=== PATIENT | male | born 1945 | race Caucasian/White ===

== ENCOUNTER → 2021-08-23 10:30 | Outpatient (CLI) | payer MEDICARE, SELFPAY ==
--- NOTE | ~2021-08-23 | XR_ITS ---
XR lumbar spine min 4V 08/23/2021 11:07 Indication: Low back pain. Procedure: 5 views of the lumbar spine Comparison: No prior studies for comparison. Findings: There is levoscoliosis. There is disc narrowing at all lumbar levels. There is multilevel f acet hypertrophy. No acute fracture or traumatic malalignment. There is no spondylolisthesis. Sacral foramen are symmetric. There are splenic arterial calcifications in the upper abdomen. Visualized bow el gas pattern is nonobstructive. Impression: 1: Severe lumbar spondylosis with levoscoliosis. Reviewed, dictated and finalized at location A. P Impression: 1: Severe lumbar spondylosis with levoscoliosis.
== END ==
PROVIDERS: PCP Family Medicine; Visit Provider Family Medicine
DX: M47.896 Other spondylosis, lumbar region (principal)
CPT/HCPCS: 72110

== ENCOUNTER 2022-02-27 09:40 | Outpatient (CLI) | payer MEDICARE, SELFPAY ==
--- NOTE | ~2022-02-27 | MR_ITS ---
EXAMINATION: MR brain/brain stem wo/w con DATE: 02/27/2022 10:38 INDICATION: Gait disturbance. TECHNIQUE: Magnetic resonance imaging (MRI) of the brain and brainstem was performed without and with 20 mL MultiHance intravenous contrast. COMPARISON: None. FINDINGS: There is no intracranial hemorrhage, acute infarction, or abnormal intracranial mass lesion . There are scattered areas of nonspecific increased T2-weighted signal intensity in the cerebral whi te matter. The ventricles are normal in size. The mastoid air cells are normal. The orbits are normal . There is mild mucosal thickening in the paranasal sinuses. IMPRESSION: 1. Mild nonspecific cerebral white matter disease, which likely represents chronic small vessel ische akshat disease. Reviewed, dictated and finalized at location A. IMPRESSION: 1. 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
== END 2022-02-27 09:41 | disposition home or self-care (01) ==
PROVIDERS: PCP Family Medicine; Visit Provider Family Medicine
DX: R26.9 Unspecified abnormalities of gait and mobility (principal); R90.82 White matter disease, unspecified
CPT/HCPCS: 70553; A9577

== ENCOUNTER 2022-04-20 15:33 | Outpatient (CLI) | payer MEDICARE, SELFPAY ==
--- NOTE | ~2022-04-20 | MR_ITS ---
EXAMINATION: MR lumbar spine wo con DATE: 04/20/2022 16:11 INDICATION: Back pain. TECHNIQUE: Magnetic resonance imaging (MRI) of the lumbar spine was performed without intravenous con trast. Sequences included sagittal T2-weighted FSE, sagittal T2-weighted FS FSE, sagittal T1-weighted FSE, and axial T2-weighted FSE. COMPARISON: Lumbar spine radiographs 08/23/2021 FINDINGS: There is 21 degrees levoscoliosis of lumbar spine. There is 3 mm retrolisthesis of L1 on L2 , L2 on L3, and L3 on L4. Vertebral body heights are normal. There is mildly decreased disc height at L1-L2, severely decreased disc height at L2-L3 and L3-L4, moderately decreased disc height at L4-L5, and severely decreased disc height at L5-S1 with endplate remodeling. The distal spinal cord signal intensity is normal. The conus medullaris is at L1. The following disc levels are specifically discus sed: L1-L2: The disc is bulging. There is mild bilateral facet joint osteoarthritis. There is mild left ne ural foraminal stenosis. There is no central canal stenosis. L2-L3: The disc is bulging and has an annular fissure. There is moderate right and mild left facet daisha int osteoarthritis. There is mild bilateral neural foraminal stenosis. There is mild central canal st enosis. L3-L4: The disc is bulging and has an annular fissure. There is severe right and moderate left facet joint osteoarthritis. There is moderate right and mild left neural foraminal stenosis. There is mild central canal stenosis. L4-L5: The disc is bulging and has an annular fissure. There is severe bilateral facet joint osteoart hritis. There is mild right and moderate left neural foraminal stenosis. There is mild central canal stenosis. L5-S1: The disc is bulging and has an annular fissure. There is moderate right and severe left facet joint osteoarthritis. There is mild bilateral neural foraminal stenosis. There is mild central canal stenosis. IMPRESSION: 1. Severe lumbar spondylosis. 2. Lumbar levoscoliosis. Reviewed, dictated and finalized at location A.
== END 2022-04-20 15:34 | disposition home or self-care (01) ==
PROVIDERS: PCP Family Medicine; Visit Provider Student in an Organized Health Care Education/Training Program
DX: R26.9 Unspecified abnormalities of gait and mobility (principal); M43.06 Spondylolysis, lumbar region; M41.86 Other forms of scoliosis, lumbar region
CPT/HCPCS: 72148

== ENCOUNTER 2022-07-10 08:58 | Outpatient (CLI) | payer MEDICARE, SELFPAY ==
--- NOTE | 2022-07-10 11:00 | NEURO_ITS ---
Impression: Patient with a history of balance issues and unsteadiness with walking. 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 # Clinical correlation recommended. Motor Nerve Conduction Lower Extremities Peroneal Nerve Conduction Velocity (m/sec) Terminal Latency (msec) Response Voltage(mV) Popliteal space-Ankle Ankle Extensor Dig Brevis Popliteal space Ankle Right 40-43 4.2 1-1 1 Left 43-10 4.3 1-1 1 Tibial Nerve Conduction Velocity (m/sec) Terminal Latency (msec) Response Voltage(mV) Popliteal space-Ankle Ankle-Extensor Dig Brevis Popliteal space Ankle Right 42 4.3 2 3 Left 41 4.1 1 3 F-waves Peroneal Nerve (ms) Tibial Nerve (ms) Right 57.4 58.0 Left 58.3 58.0 Sensory Nerve Conduction Lower Extremities Sural Nerve Stimulation Terminal Latency (msec) Ankle Response Voltage (uV) Ankle Response Velocity (m/sec) Right 3.9 8 41 Left 3.5 18 43 Superficial Peroneal Nerve Stimulation Terminal Latency (msec) Ankle Response Voltage (uV) Ankle Response Velocity (m/sec) Right 3.9 17 41 Left 4.2 15 38 Left Right Muscles Examined Fibrillation Fasciculation Scarcity Voltage Duration Left Right Left Right Left Right Left Right Left Right X X Ant Tibialis X X Gastroc Reduced Reduced X X Fibularis Long X X Flex Dig Long Reduced Reduced X X Ext Dig Brev Abd Hallucis Quadriceps Paraspinals MTDD
== END 2022-07-10 08:59 | disposition home or self-care (01) ==
PROVIDERS: PCP Family Medicine; Visit Provider Student in an Organized Health Care Education/Training Program
DX: R26.9 Unspecified abnormalities of gait and mobility (principal); G62.9 Polyneuropathy, unspecified
CPT/HCPCS: 95886; 95910

== ENCOUNTER 2025-05-12 22:26 | Emergency (ER) | payer MEDICARE, SELFPAY ==
--- OUTSIDE RECORDS SUMMARY | 2021-11-27 10:09 | XMS_ITS | Continuity of Care Document ---
Author Organization [facility] Address [address] [place] [address] [address] [place] [address] Phone Care Team Providers Care Financial Controller Name Role Phone Darek PT, MYAT, Cory Unavailable Unavailable Procedures Procedure Date Progress Note Therapeutic Activities Neuromuscular Re-Ed Therapeutic Activities Neuromuscular Re-Ed Therapeutic Activities Neuromuscular Re-Ed Therapeutic Activities Neuromuscular Re-Ed Therapeutic Activities Therapeutic Activities Neuromuscular Re-Ed Therapeutic Activities Neuromuscular Re-Ed PT Evaluation High Complexity Therapeutic Activities Neuromuscular Re-Ed Therapeutic Activities Therapeutic Exercise Therapeutic Activities Therapeutic Exercise Therapeutic Activities Therapeutic Exercise Therapeutic Activities Therapeutic Exercise Therapeutic Activities Therapeutic Exercise Therapeutic Activities Neuromuscular Re-Ed Therapeutic Activities Neuromuscular Re-Ed Progress Note Therapeutic Activities Therapeutic Exercise Progress Note Therapeutic Activities Neuromuscular Re-Ed Therapeutic Exercise Therapeutic Activities Neuromuscular Re-Ed Progress Note Therapeutic Activities Neuromuscular Re-Ed Therapeutic Exercise Therapeutic Activities Therapeutic Exercise Therapeutic Activities Neuromuscular Re-Ed Therapeutic Exercise Therapeutic Activities Neuromuscular Re-Ed Progress Note Therapeutic Activities Neuromuscular Re-Ed Therapeutic Activities Neuromuscular Re-Ed Therapeutic Exercise Therapeutic Activities Neuromuscular Re-Ed Therapeutic Exercise Therapeutic Activities Neuromuscular Re-Ed Therapeutic Exercise Therapeutic Activities Neuromuscular Re-Ed Manual Therapy Therapeutic Activities Therapeutic Exercise Manual Therapy Therapeutic Activities Therapeutic Exercise Manual Therapy Therapeutic Activities Therapeutic Exercise Manual Therapy PT Evaluation Moderate Complexity Therapeutic Exercise Manual Therapy Therapeutic Exercise Therapeutic Activities Therapeutic Exercise Therapeutic Activities Therapeutic Exercise Therapeutic Activities Neuromuscular Re-Ed Progress Note Therapeutic Exercise Therapeutic Activities Neuromuscular Re-Ed Therapeutic Activities Neuromuscular Re-Ed Therapeutic Activities Neuromuscular Re-Ed Therapeutic Exercise Therapeutic Activities Neuromuscular Re-Ed Therapeutic Activities Neuromuscular Re-Ed Therapeutic Exercise Therapeutic Activities Neuromuscular Re-Ed Therapeutic Exercise Therapeutic Activities PT Evaluation Moderate Complexity Therapeutic Exercise Therapeutic Activities Advance Directives Directive Yes / No Effective Date File Name No Information Encounters Encounter Description Practice Location Reason(s) For Visit Diagnoses Date Provider Providers Copied on Encounter [facility] [address] [address], [place], [place], [id number], tel:[phone] [place] No Information Sergio-0 6-202 2 Klahn Cory. . [facility] [address], [id number], tel:[phone] [place] No Information Sep-1 5- 2 Klahn Cory. . Referring Provider: [address], [place], [address]. tel:[phone] [place] [address] [address] [address], [place], [place], [id number], tel:[phone] [place] No Information 2 Klahn Cory. . Referring Provider: [address], [place], [address]. tel:[phone] [place] [address], [id number], [place] tel:[phone] [place] No Information Sep-0 6 2 Klahn Cory. . Referring Provider: [address], [place], [address]. tel:[phone] [place] [address], [id number], [place] tel:[phone] [place] No Information Aug-3 0-202 2 Klahn Cory. . Referring Provider: [address], [place], [address]. tel:[phone] [place] [address] [address] [facility], [place], [place], [id number], [place] tel:[phone] [place] No Information Mar-2 8-202 2 Juliannen Cory. . Referring Provider: [address], [place], [address]. tel:[phone] [place], [place] [id number] [address], [place], [place], [address], [place] tel:[phone] [place] No Information Mar-2 3-202 2 Klahn Cory. . Referring Provider: [address], [place], [address]. tel:[phone] [place], [place] [id number] [address], [place], [place], [address], [place] tel:[phone] [place] No Information Mar-2 1-202 2 [place] Eladio. . Referring Provider: [address], [place], [address]. tel:[phone] [place] [id number] [address], [place], [place], [address], [place] tel:[phone] [place] No Information Mar-1 6-202 2 Juliannen Cory. . Referring Provider: [address], [place], [address]. tel:[phone] [place], [place] [id number] [address], [place], [place], [address], [place] tel:[phone] [place] No Information Mar-2 7-202 0 Makler Luke. . [facility], [place], [place], [address], [place] tel:[phone] [place] No Information Mar-2 0-202 0 Makler Luke. . [facility], [place], [place], [address], [place] tel:[phone] [place] No Information Mar-1 1-202 0 Makler Luke. . [facility], [place], [place], [address], [place] tel:[phone] [place] No Information Mar-0 6-202 0 Makler Luke. . [facility], [place], [place], [address], [place] tel:[phone] [place] No Information - 0 Makler Luke. . [facility], [place], [place], [address], [place] tel:[phone] [place] No Information 0 Makler Luke. . [facility], [place], [place], [address], [place] tel:[phone] [place] No Information 0 Makler Luke. . [facility], [place], [place], [address], [place] tel:[phone] [place] No Information 0 Makler Luke. . [facility], [place], [place], [address], [place] tel:[phone] [place] No Information 0 Makler Luke. . [facility], [place], [place], [address], [place] tel:[phone] [place] No Information - 0 Makler Luke. . [facility], [place], [place], [address], [place] tel:[phone] [place] No Information 0- 0 Makler Luke. . [facility], [place], [place], [address], [place] tel:[phone] [place] No Information - 0 Makler Luke. . [facility], [place], [address], [place] tel:[phone] [place] No Information 2- 0 Makler Luke. . [facility], [place], [place], [address], [place] tel:[phone] [place] No Information 0-201 9 Makler Luke. . [facility], [place], [place], [address], [place] tel:[phone] [place] No Information Dec-2 6-201 9 Makler Luke. . [facility], [place], [address], [place] tel:[phone] [place] No Information Dec-2 4-201 9 Makler Luke. . [facility], [place], [place], [address], [place] tel:[phone] [place] No Information Dec-2 0-201 9 Makler Luke. . [facility], [place], [place], [address], [place] tel:[phone] [place] No Information Dec-1 6-201 9 Makler Luke. . [facility], [place], [place], [address], [place] tel:[phone] [place] No Information Dec-1 3-201 9 Makler Luke. . [facility], [place], [place], [address], [place] tel:[phone] [place] No Information Dec-0 4-201 9 Makler Luke. . [facility], [place], [address], [place] tel:[phone] [place] No Information Dec-0 2-201 9 Makler Luke. . [facility], [place], [place], [address], [place] tel:[phone] [place] No Information Nov-2 2-201 9 Makler Luke. . [facility], [place], [place], [address], [place] tel:[phone] [place] No Information Nov-1 8-201 9 Makler Luke. . [facility], [place], [place], [address], [place] tel:[phone] [place] No Information 9 Makler Luke. . [facility], [place], [place], [address], [place] tel:[phone] [place] No Information 9 Makler Luke. . [facility], [place], [place], [address], [place] tel:[phone] [place] No Information 9 Makler Luke. . [facility], [place], [address], [place] tel:[phone] [place] No Information 9 Makler Luke. . [facility], [place], [place], [address], [place] tel:[phone] [place] No Information 9 Makler Luke. . [facility], [place], [place], [address], [place] tel:[phone] [place] No Information 9 Makler Luke. . [facility], [place], [place], [address], [place] tel:[phone] [place] No Information 9 Makler Luke. . [facility], [place], [address], [place] tel:[phone] [place] No Information 9 Makler Luke. . [facility], [place], [address], [place] tel:[phone] [place] No Information 9 Makler Luke. . [facility], [place], [place], [address], [place] tel:[phone] [place] No Information 9 Makler Luke. . [facility] [place], [place], [place], [address], [place] tel:[phone] [place] No Information Teddy Bueno. . Family History Family Member Type Diagnosis Age At Onset No Information Payers Payer name Insurance type Covered libertarian ID Authoriza tiscot(s) Medicare [place] MB [id number] [facility] Medicare Supplement [id number] Social History Type Description Quantity Date Captured Comments Sex Male Smoking Status No Information Chief Complaint And Reason For Visit No Information Reason For Referral Reason For Referral No Information History Of Present Illness Encounter Date Complaint History Of Prese nt Illness No Information Functional Status Date Functional Assessmen t No Information Instructions Date Instruction Additional Infor zaid Giving encouragement to exercise Related to Overweight Giving encouragement to exercise Related to Overweight Assessments Type Assessment Date No Information Patient Care Teams Name Effective Dates (start - stop) Status Members No Information
--- OUTSIDE RECORDS SUMMARY | 2021-11-27 10:09 | XMS_ITS | Continuity of Care Document ---
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 . [facility] [address], [id number], tel:[phone] [place] No Information Sep-1 5- 2 Klahn Cory. . Referring Provider: [address], [place], [address]. tel:[phone] [place] [address] [address] [address], [place], [place], [address], tel:[phone] [place] No Information 2 Klahn Cory. . Referring Provider: [address], [place], [address]. tel:[phone] [place] [address], [id number], [place] tel:[phone] [place] No Information Sep-0 6 2 Klahn Cory. . Referring Provider: [address], [place], [address]. tel:[phone] [place] [address], [id number], [place] tel:[phone] [place] No Information Aug-3 0-202 2 Klahn Cory. . Referring Provider: [address], [place], [address]. tel:[phone] [place] [address] [address] [facility], [place], [place], [address], [place] tel:[phone] [place] No Information Mar-2 8-202 2 Juliannen Cory. . Referring Provider: [address], [place], [address]. tel:[phone] [place], [place] [id number] [address], [place], [place], [address], [place] tel:[phone] [place] No Information Mar-2 3-202 2 Klahn Cory. . Referring Provider: [address], [place], [address]. tel:[phone] [place], [place] [id number] [address], [place], [place], [address], [place] tel:[phone] [place] No Information Mar-2 1-202 2 [place] Eladio. . Referring Provider: [address], [place], [address]. tel:[phone] [place], [place] [id number] [address], [place], [place], [address], [place] tel:[phone] [place] No Information Mar-1 6-202 2 Juliannen Cory. . Referring Provider: [address], [place], [address]. tel:[phone] [place], [place] [id number] [address], [place], [place], [address], [place] tel:[phone] [place] No Information Mar-2 7-202 0 Makler Luke. . [facility], [place], [place], [address], [place] tel:[phone] [place] No Information Mar-2 0-202 0 Makler Luke. . [facility], [place], [place], [address], [place] tel:[phone] [place] No Information Mar-1 1-202 0 Makler Luke. . [facility], [place], [place], [address], [place] tel:[phone] [place] No Information Mar-0 6-202 0 Makler Luke. . [facility], [place], [place], [address], [place] tel:[phone] [place] No Information - 0 Makler Luke. . [facility], [place], [place], [address], [place] tel:[phone] [place] No Information 0 Makler Luke. . [facility], [place], [place], [address], [place] tel:[phone] [place] No Information 0 Makler Luke. . [facility], [place], [place], [address], [place] tel:[phone] [place] No Information 0 Makler Luke. . [facility], [place], [place], [address], [place] tel:[phone] [place] No Information 0 Makler Luke. . [facility], [place], [place], [address], [place] tel:[phone] [place] No Information - 0 Makler Luke. . [facility], [place], [place], [address], [place] tel:[phone] [place] No Information 0- 0 Makler Luke. . [facility], [place], [place], [address], [place] tel:[phone] [place] No Information - 0 Makler Luke. . [facility], [place], [place], [address], [place] tel:[phone] [place] No Information 2- 0 Makler Luke. . [facility], [place], [place], [address], [place] tel:[phone] [place] No Information 0-201 9 Makler Luke. . [facility], [place], [place], [address], [place] tel:[phone] [place] No Information Dec-2 6-201 9 Makler Luke. . [facility], [place], [place], [address], [place] tel:[phone] [place] No Information Dec-2 4-201 9 Makler Luke. . [facility], [place], [place], [address], [place] tel:[phone] [place] No Information Dec-2 0-201 9 Makler Luke. . [facility], [place], [place], [address], [place] tel:[phone] [place] No Information Dec-1 6-201 9 Makler Luke. . [facility], [place], [place], [address], [place] tel:[phone] [place] No Information Dec-1 3-201 9 Makler Luke. . [facility], [place], [place], [address], [place] tel:[phone] [place] No Information Dec-0 4-201 9 Makler Luke. . [facility], [place], [place], [address], [place] tel:[phone] [place] No Information Dec-0 2-201 9 Makler Luke. . [facility], [place], [place], [address], [place] tel:[phone] [place] No Information Nov-2 2-201 9 Makler Luke. . [facility], [place], [place], [address], [place] tel:[phone] [place] No Information Nov-1 8-201 9 Makler Luke. . [facility], [place], [place], [address], [place] tel:[phone] [place] No Information 9 Makler Luke. . [facility], [place], [place], [address], [place] tel:[phone] [place] No Information 9 Makler Luke. . [facility], [place], [place], [address], [place] tel:[phone] [place] No Information 9 Makler Luke. . [facility], [place], [place], [address], [place] tel:[phone] [place] No Information 9 Makler Luke. . [facility], [place], [place], [address], [place] tel:[phone] [place] No Information 9 Makler Luke. . [facility], [place], [place], [address], [place] tel:[phone] [place] No Information 9 Makler Luke. . [facility], [place], [place], [address], [place] tel:[phone] [place] No Information 9 Makler Luke. . [facility], [place], [place], [address], [place] tel:[phone] [place] No Information 9 Makler Luke. . [facility], [place], [place], [address], [place] tel:[phone] [place] No Information 9 Makler Luke. . [facility], [place], [place], [address], [place] tel:[phone] [place] No Information 9 Makler Luke. . [facility] [place], [place], [place], [address], [place] tel:[phone] [place] No Information Teddy Bueno. . Family History Family Member Type Diagnosis Age At Onset No Information Payers Payer name Insurance type Covered constitution party ID Authoriza tiscot(s) Medicare [place] MB [id number] [facility] Medicare Supplement [id number] Social History Type Description Quantity Date Captured [...]
--- OUTSIDE RECORDS SUMMARY | 2021-11-27 10:09 | XMS_ITS | Continuity of Care Document ---
Author Organization [employer] [place] Address [address] [place] [address] [address] [place] [address] Phone Care Team Providers Care Programmer Name Role Phone Darek PT, MYAT, Cory [...] Diagnoses Date Provider Providers Copied on Encounter [facility] [address] [address], [place], [place], [id number], tel:[phone] [place] No Information Sergio-0 6-202 2 Klahn Cory. . [facility] [address], [id number], tel:[phone] [place] No Information Sep-1 5- 2 Klahn Cory. . Referring Provider: [address], [place], [address]. tel:[phone] [place] [address] [address] [address], [place], [place], [address], tel:[phone] [place] No Information 2 Klahn Cory. . Referring Provider: [address], [place], [address]. tel:[phone] [place] [address], [id number], [place] tel:[phone] [place] No Information Sep-0 6 2 Klahn Cory. . Referring Provider: [address], [place], [address]. tel:[phone] [place] [address], [id number], [place] tel:[phone] [place] No Information Aug-3 0-202 2 Klahn Cory. . Referring Provider: [address], [place], [address]. tel:[phone] [place] [address] 2121 [facility], [place], [place], [address], [place] tel:[phone] [place] No Information Mar-2 8-202 2 Juliannen Cory. . Referring Provider: [address], [place], [address]. tel:[phone] [place], [place] [address] [address], [place], [place], [address], [place] tel:[phone] [place] No Information Mar-2 3-202 2 Klahn Cory. . Referring Provider: [address], [place], [address]. tel:[phone] [place], [place] [address] [address], [place], [place], [address], [place] tel:[phone] [place] No Information Mar-2 1-202 2 Modglin Eladio. . Referring Provider: [address], [place], [address]. tel:[phone] [place], [place] [address] [address], [place], [place], [address], [place] tel:[phone] [place] No Information Mar-1 6-202 2 Juliannen Cory. . Referring Provider: [address], [place], [address]. tel:[phone] [place], [place] [address] [address], [place], [place], [address], [place] tel:[phone] [place] No Information Mar-2 7-202 0 Makler Luke. . [facility], [place], [address], [place] tel:[phone] [place] No Information Mar-2 0-202 0 Makler Luke. . [facility], [place], [place], [address], [place] tel:[phone] [place] No Information Mar-1 1-202 0 Makler Luke. . [facility], [place], [address], [place] tel:[phone] [place] No Information Mar-0 6-202 0 Makler Luke. . [facility], [place], [address], [place] tel:[phone] [place] No Information - 0 Makler Luke. . [facility], [place], [address], [place] tel:[phone] [place] No Information 0 Makler Luke. . [facility], [place], [address], [place] tel:[phone] [place] No Information 0 Makler Luke. . [facility], [place], [address], [place] tel:[phone] [place] No Information 0 Makler Luke. . [facility], [place], [address], [place] tel:[phone] [place] No Information 0 Makler Luke. . [facility], [place], [address], [place] tel:[phone] [place] No Information - 0 Makler Luke. . [facility], [place], [address], [place] tel:[phone] [place] No Information 0- 0 Makler Luke. . [facility], [place], [address], [place] tel:[phone] [place] No Information - 0 Makler Luke. . [facility], [place], [address], [place] tel:[phone] [place] No Information 2- 0 Makler Luke. . [facility], [place], [place], [address], [place] tel:[phone] [place] No Information 0-201 9 Makler Luke. . [facility], [place], [address], [place] tel:[phone] [place] No Information Dec-2 6-201 9 Makler Luke. . [facility], [place], [address], [place] tel:[phone] [place] No Information Dec-2 4-201 9 Makler Luke. . [facility], [place], [address], [place] tel:[phone] [place] No Information Dec-2 0-201 9 Makler Luke. . [facility], [place], [address], [place] tel:[phone] [place] No Information Dec-1 6-201 9 Makler Luke. . [facility], [place], [address], [place] tel:[phone] [place] No Information Dec-1 3-201 9 Makler Luke. . [facility], [place], [address], [place] tel:[phone] [place] No Information Dec-0 4-201 9 Makler Luke. . [facility], [place], [address], [place] tel:[phone] [place] No Information Dec-0 2-201 9 Makler Luke. . [facility], [place], [address], [place] tel:[phone] [place] No Information Nov-2 2-201 9 Makler Luke. . [facility], [place], [address], [place] tel:[phone] [place] No Information Nov-1 8-201 9 Makler Luke. . [facility], [place], [address], [place] tel:[phone] [place] No Information 9 Makler Luke. . [facility], [place], [address], [place] tel:[phone] [place] No Information 9 Makler Luke. . [facility], [place], [address], [place] tel:[phone] [place] No Information 9 Makler Luke. . [facility], [place], [place], [address], [place] tel:[phone] [place] No Information 9 Makler Luke. . [facility], [place], [address], [place] tel:[phone] [place] No Information 9 Makler Luke. . [facility], [place], [address], [place] tel:[phone] [place] No Information 9 Makler Luke. . [facility], [place], [address], [place] tel:[phone] [place] No Information 9 Makler Luke. . [facility], [place], [address], [place] tel:[phone] [place] No Information 9 Makler Luke. . [facility], [place], [address], [place] tel:[phone] [place] No Information 9 Makler Luke. . [facility], [place], [place], [address], [place] tel:[phone] [place] No Information [address] . [facility] [place], [place], [place], [address], [place] tel:[phone] [place] No Information Teddy Bueno. . Family History Family Member Type Diagnosis Age At Onset No Information Payers Payer name Insurance type Covered democrat ID Authoriza tiscot(s) Medicare [place] MB [id number] [facility] Medicare Supplement [id number] Social History Type Description Quantity Date Captured [...]
--- OUTSIDE RECORDS SUMMARY | 2021-11-27 10:09 | XMS_ITS | Continuity of Care Document ---
Author Organization [employer] [place] Address [address] [place] [address] [address] [place] [address] Phone Care Team Providers Care Utility Operator Name Role Phone Darek PT, MYAT, Coyr Unavailable Unavailable Procedures Procedure Date Progress Note [...] Diagnoses Date Provider Providers Copied on Encounter [facility] [address] [address], [place], [place], [address], tel:[phone] [place] No Information Sergio-0 6-202 2 Klahn Cory. . [facility] [address], [id number], tel:[phone] [place] No Information Sep-1 5- 2 Klahn Cory. . Referring Provider: [address], [place], [address]. tel:[phone] [place] [address] [address] [address], [place], [place], [address], tel:[phone] [place] No Information 2 Klahn Cory. . Referring Provider: [address], [place], [address]. tel:[phone] [place] [address], [id number], [place] tel:[phone] [place] No Information Sep-0 6 2 Klahn Cory. . Referring Provider: [address], [place], [address]. tel:[phone] [place] [address], [address], [place] tel:[phone] [place] No Information Aug-3 0-202 2 Klahn oCry. . Referring Provider: [address], [place], [address]. tel:[phone] [place] [address] 2121 [facility], [place], [address], [place] tel:[phone] [place] No Information Mar-2 8-202 2 Juliannen Cory. . Referring Provider: [address], [place], [address]. tel:[phone] [place], [place] [address] [address], [place], [address], [place] tel:[phone] [place] No Information Mar-2 3-202 2 Klahn Cory. . Referring Provider: [address], [place], [address]. tel:[phone] [place], [place] [address] [address], [place], [address], [place] tel:[phone] [place] No Information Mar-2 1-202 2 Modglin Eladio. . Referring Provider: [address], [place], [address]. tel:[phone] [place], [place] [address] [address], [place], [address], [place] tel:[phone] [place] No Information Mar-1 6-202 2 Juliannen Cory. . Referring Provider: [address], [place], [address]. tel:[phone] [place] [address] [address], [place], [address], [place] tel:[phone] [place] No Information Mar-2 7-202 0 Makler Luke. . [facility], [place], [place], [address], [place] tel:[phone] [place] No Information Mar-2 0-202 0 Makler Luke. . [facility], [place], [place], [address], [place] tel:[phone] [place] No Information Mar-1 1-202 0 Makler Luke. . [facility], [place], [place], [address], [place] tel:[phone] [place] No Information Mar-0 6-202 0 Makler Luke. . [facility], [place], [address], [place] tel:[phone] [place] No Information - 0 Makler Luke. . [facility], [place], [address], [place] tel:[phone] [place] No Information 0 Makler Luke. . [facility], [place], [address], [place] tel:[phone] [place] No Information 0 Makler Luke. . [facility], [place], [address], [place] tel:[phone] [place] No Information 0 Makler Luke. . [facility], [place], [place], [address], [place] tel:[phone] [place] No Information 0 Makler Luke. . [facility], [place], [place], [address], [place] tel:[phone] [place] No Information - 0 Makler Luke. . [facility], [place], [place], [address], [place] tel:[phone] [place] No Information 0- 0 Makler Luke. . [facility], [place], [address], [place] tel:[phone] [place] No Information - 0 Makler Luke. . [facility], [place], [address], [place] tel:[phone] [place] No Information 2- 0 Makler Luke. . [facility], [place], [address], [place] tel:[phone] [place] No Information 0-201 9 Makler Luke. . [facility], [place], [place], [address], [place] tel:[phone] [place] No Information Dec-2 6-201 9 Makler Luke. . [facility], [place], [address], [place] tel:[phone] [place] No Information Dec-2 4-201 9 Makler Luke. . [facility], [place], [address], [place] tel:[phone] [place] No Information Dec-2 0-201 9 Makler Luke. . [facility], [place], [address], [place] tel:[phone] [place] No Information Dec-1 6-201 9 Makler Luke. . [facility], [place], [place], [address], [place] tel:[phone] [place] No Information Dec-1 3-201 9 Makler Luke. . [facility], [place], [address], [place] tel:[phone] [place] No Information Dec-0 4-201 9 Makler Luke. . [facility], [place], [place], [address], [place] tel:[phone] [place] No Information Dec-0 2-201 9 Makler Luke. . [facility], [place], [place], [address], [place] tel:[phone] [place] No Information Nov-2 2-201 9 Makler Luke. . [facility], [place], [address], [place] tel:[phone] [place] No Information Nov-1 8-201 9 Makler Luke. . [facility], [place], [place], [address], [place] tel:[phone] [place] No Information 9 Makler Luke. . [facility], [place], [place], [address], [place] tel:[phone] [place] No Information 9 Makler Luke. . [facility], [place], [address], [place] tel:[phone] [place] No Information 9 Makler Luke. . [facility], [place], [address], [place] tel:[phone] [place] No Information 9 Makler Luke. . [facility], [place], [place], [address], [place] tel:[phone] [place] No Information 9 Makler Luke. . [facility], [place], [address], [place] tel:[phone] [place] No Information 9 Makler Luke. . [facility], [place], [address], [place] tel:[phone] [place] No Information 9 Makler Luke. . [facility], [place], [place], [address], [place] tel:[phone] [place] No Information 9 Makler Luke. . [facility], [place], [address], [place] tel:[phone] [place] No Information 9 Makler Luke. . [facility], [place], [address], [place] tel:[phone] [place] No Information 9 Makler Luke. . [facility] [place], [place], [address], [place] tel:[phone] [place] No Information Teddy Bueno. . Family History Family Member Type Diagnosis Age At Onset No Information Payers Payer name Insurance type Covered constitution party ID Authoriza tiscot(s) Medicare [place] MB [id number] [facility] Medicare Supplement [id number] Social History Type Description Quantity Date Captured [...]
--- OUTSIDE RECORDS SUMMARY | 2021-11-27 10:09 | XMS_ITS | Continuity of Care Document ---
Author Organization [employer] [place] Address [address] [place] [address] [address] [place] [address] Phone Care Team Providers Care Academic Department Chair Name Role Phone Darek PT, MYAT, Cory [...] Diagnoses Date Provider Providers Copied on Encounter [facility] [address] [address], [place], [place], [address], tel:[phone] [place] No Information Sergio-0 6-202 2 Klahn Cory. . [facility] [address], [address], tel:[phone] [place] No Information Sep-1 5- 2 Klahn Cory. . Referring Provider: [address], [place], [address]. tel:[phone] [place] [address] [address] [address], [place], [place], [address], tel:[phone] [place] No Information 2 Klahn Cory. . Referring Provider: [address], [place], [address]. tel:[phone] [place] [address], [address], [place] tel:[phone] [place] No Information Sep-0 6 2 Klahn Cory. . Referring Provider: [address], [place], [address]. tel:[phone] [place] [address], [address], [place] tel:[phone] [place] No Information Aug-3 0-202 2 Klahn Cory. . Referring Provider: [address], [place], [address]. tel:[phone] [place] [address] 2121 [facility], [place], [place], [address], [place] tel:[phone] [place] No Information Mar-2 8-202 2 Juliannen Cory. . Referring Provider: [address], [place], [address]. tel:[phone] [place], [place] [address], [place], [place], [address], [place] tel:[phone] [place] No Information Mar-2 3-202 2 Klahn Cory. . Referring Provider: [address], [place], [address]. tel:[phone] [place], [place] [address] [address], [place], [place], [address], [place] tel:[phone] [place] No Information Mar-2 1-202 2 Modgl[place] Eladio. . Referring Provider: [address], [place], [address]. tel:[phone] [place], [place] [address] [address], [place], [place], [address], [place] tel:[phone] [place] No Information Mar-1 6-202 2 Juliannen Cory. . Referring Provider: [address], [place], [address]. tel:[phone] [place], [place] [address] [address], [place], [place], [address], [place] tel:[phone] [place] No Information Mar-2 7-202 0 Makler Luke. . [facility], [place], [place], [address], [place] tel:[phone] [place] No Information Mar-2 0-202 0 Makler Luke. . [facility], [place], [place], [address], [place] tel:[phone] [place] No Information Mar-1 1-202 0 Makler Luke. . [facility], [place], [place], [address], [place] tel:[phone] [place] No Information Mar-0 6-202 0 Makler Luke. . [facility], [place], [place], [address], [place] tel:[phone] [place] No Information - 0 Makler Luke. . [facility], [place], [address], [place] tel:[phone] [place] No Information 0 Makler Luke. . [facility], [place], [place], [address], [place] tel:[phone] [place] No Information 0 Makler Luke. . [facility], [place], [place], [address], [place] tel:[phone] [place] No Information 0 Makler Luke. . [facility], [place], [place], [address], [place] tel:[phone] [place] No Information 0 Makler Luke. . [facility], [place], [place], [address], [place] tel:[phone] [place] No Information - 0 Makler Luke. . [facility], [place], [place], [address], [place] tel:[phone] [place] No Information 0- 0 Makler Luke. . [facility], [place], [place], [address], [place] tel:[phone] [place] No Information - 0 Makler Luke. . [facility], [place], [place], [address], [place] tel:[phone] [place] No Information 2- 0 Makler Luke. . [facility], [place], [place], [address], [place] tel:[phone] [place] No Information 0-201 9 Makler Luke. . [facility], [place], [place], [address], [place] tel:[phone] [place] No Information Dec-2 6-201 9 Makler Luke. . [facility], [place], [place], [address], [place] tel:[phone] [place] No Information Dec-2 4-201 9 Makler Luke. . [facility], [place], [place], [address], [place] tel:[phone] [place] No Information Dec-2 0-201 9 Makler Luke. . [facility], [place], [place], [address], [place] tel:[phone] [place] No Information Dec-1 6-201 9 Makler Luke. . [facility], [place], [place], [address], [place] tel:[phone] [place] No Information Dec-1 3-201 9 Makler Luke. . [facility], [place], [place], [address], [place] tel:[phone] [place] No Information Dec-0 4-201 9 Makler Luke. . [facility], [place], [place], [address], [place] tel:[phone] [place] No Information Dec-0 2-201 9 Makler Luke. . [facility], [place], [place], [address], [place] tel:[phone] [place] No Information Nov-2 2-201 9 Makler Luke. . [facility], [place], [place], [address], [place] tel:[phone] [place] No Information Nov-1 8-201 9 Makler Luke. . [facility], [place], [place], [address], [place] tel:[phone] [place] No Information 9 Makler Luke. . [facility], [place], [place], [address], [place] tel:[phone] [place] No Information 9 Makler Luke. . [facility], [place], [place], [address], [place] tel:[phone] [place] No Information 9 Makler Luke. . [facility], [place], [place], [address], [place] tel:[phone] [place] No Information 9 Makler Luke. . [facility], [place], [place], [address], [place] tel:[phone] [place] No Information 9 Makler Luke. . [facility], [place], [place], [address], [place] tel:[phone] [place] No Information 9 Makler Luke. . [facility], [place], [place], [address], [place] tel:[phone] [place] No Information 9 Makler Luke. . [facility], [place], [place], [address], [place] tel:[phone] [place] No Information 9 Makler Luke. . [facility], [place], [place], [address], [place] tel:[phone] [place] No Information 9 Makler Luke. . [facility], [place], [place], [address], [place] tel:[phone] [place] No Information 9 Makler Luke. . [facility] [place], [place], [place], [address], [place] tel:[phone] [place] No Information Teddy Bueno. . Family History Family Member Type Diagnosis Age At Onset No Information Payers Payer name Insurance type Covered libertarian ID Authoriza tiscot(s) Medicare [place] MB [id number] [facility] Medicare Supplement [id number] Social History Type Description Quantity Date Captured [...]
--- OUTSIDE RECORDS SUMMARY | 2021-11-27 10:09 | XMS_ITS | Continuity of Care Document ---
Author Organization [facility] [place] Address [address] [place] [address] [address] [place] [address] Phone Care Team Providers Care Mottler Machine Feeder Name Role Phone Darek PT, MYAT, Cory [...] Diagnoses Date Provider Providers Copied on Encounter [facility] [address] [address], [place], [place], [address], tel:[phone] [place] No Information Sergio-0 6-202 2 Klahn Cory. . [facility] [address], [id number], tel:[phone] [place] No Information Sep-1 5- 2 Klahn Cory. . Referring Provider: [address], [place], [address]. tel:[phone] [place] [address] [address] [address], [place], [place], [address], tel:[phone] [place] No Information 2 Klahn Cory. . Referring Provider: [address], [place], [address]. tel:[phone] [place] [address], [id number], [place] tel:[phone] [place] No Information Sep-0 6 2 Klahn Cory. . Referring Provider: [address], [place], [address]. tel:[phone] [place] [address], [id number], [place] tel:[phone] [place] No Information Aug-3 0-202 2 Klahn Cory. . Referring Provider: [address], [place], [address]. tel:[phone] [place] [address] 2121 [facility], [place], [place], [address], [place] tel:[phone] [place] No Information Mar-2 8-202 2 Juliannen Cory. . Referring Provider: [address], [place], [address]. tel:[phone] [place], [place] [address] [address], [place], [place], [address], [place] tel:[phone] [place] No Information Mar-2 3-202 2 Klahn Cory. . Referring Provider: [address], [place], [address]. tel:[phone] [place], [place] [address] [address], [place], [place], [address], [place] tel:[phone] [place] No Information Mar-2 1-202 2 [place] Eladio. . Referring Provider: [address], [place], [address]. tel:[phone] [place], [place] [address] [address], [place], [place], [address], [place] tel:[phone] [place] No Information Mar-1 6-202 2 Juliannen Cory. . Referring Provider: [address], [place], [address]. tel:[phone] [place], [place] [address] [address], [place], [place], [address], [place] tel:[phone] [place] No Information Mar-2 7-202 0 Makler Luke. . [facility], [place], [place], [address], [place] tel:[phone] [place] No Information Mar-2 0-202 0 Makler Luke. . [facility], [place], [place], [address], [place] tel:[phone] [place] No Information Mar-1 1-202 0 Makler Luke. . [facility], [place], [place], [address], [place] tel:[phone] [place] No Information Mar-0 6-202 0 Makler Luke. . [facility], [place], [place], [address], [place] tel:[phone] [place] No Information - 0 Makler Luke. . [facility], [place], [place], [address], [place] tel:[phone] [place] No Information 0 Makler Luke. . [facility], [place], [place], [address], [place] tel:[phone] [place] No Information 0 Makler Luke. . [facility], [place], [place], [address], [place] tel:[phone] [place] No Information 0 Makler Luke. . [facility], [place], [place], [address], [place] tel:[phone] [place] No Information 0 Makler Luke. . [facility], [place], [place], [address], [place] tel:[phone] [place] No Information - 0 Makler Luke. . [facility], [place], [place], [address], [place] tel:[phone] [place] No Information 0- 0 Makler Luke. . [facility], [place], [place], [address], [place] tel:[phone] [place] No Information - 0 Makler Luke. . [facility], [place], [place], [address], [place] tel:[phone] [place] No Information 2- 0 Makler Luke. . [facility], [place], [place], [address], [place] tel:[phone] [place] No Information 0-201 9 Makler Luke. . [facility], [place], [place], [address], [place] tel:[phone] [place] No Information Dec-2 6-201 9 Makler Luke. . [facility], [place], [place], [address], [place] tel:[phone] [place] No Information Dec-2 4-201 9 Makler Luke. . [facility], [place], [place], [address], [place] tel:[phone] [place] No Information Dec-2 0-201 9 Makler Luke. . [facility], [place], [place], [address], [place] tel:[phone] [place] No Information Dec-1 6-201 9 Makler Luke. . [facility], [place], [place], [address], [place] tel:[phone] [place] No Information Dec-1 3-201 9 Makler Luke. . [facility], [place], [place], [address], [place] tel:[phone] [place] No Information Dec-0 4-201 9 Makler Luke. . [facility], [place], [place], [address], [place] tel:[phone] [place] No Information Dec-0 2-201 9 Makler Luke. . [facility], [place], [place], [address], [place] tel:[phone] [place] No Information Nov-2 2-201 9 Makler Luke. . [facility], [place], [place], [address], [place] tel:[phone] [place] No Information Nov-1 8-201 9 Makler Luke. . [facility], [place], [place], [address], [place] tel:[phone] [place] No Information 9 Makler Luke. . [facility], [place], [place], [address], [place] tel:[phone] [place] No Information 9 Makler Luke. . [facility], [place], [place], [address], [place] tel:[phone] [place] No Information 9 Makler Luke. . [facility], [place], [place], [address], [place] tel:[phone] [place] No Information 9 Makler Luke. . [facility], [place], [place], [address], [place] tel:[phone] [place] No Information 9 Makler Luke. . [facility], [place], [place], [address], [place] tel:[phone] [place] No Information 9 Makler Luke. . [facility], [place], [place], [address], [place] tel:[phone] [place] No Information 9 Makler Luke. . [facility], [place], [place], [address], [place] tel:[phone] [place] No Information 9 Makler Luke. . [facility], [place], [place], [address], [place] tel:[phone] [place] No Information 9 Makler Luke. . [facility], [place], [place], [address], [place] tel:[phone] [place] No Information 9 Makler Luke. . [facility] [place], [place], [place], [address], [place] tel:[phone] [place] No Information Teddy Bueno. . Family History Family Member Type Diagnosis Age At Onset No Information Payers Payer name Insurance type Covered green party ID Authoriza tiscot(s) Medicare [place] MB [id number] [facility] Medicare Supplement [id number] Social History Type Description Quantity Date Captured [...]
--- OUTSIDE RECORDS SUMMARY | 2021-11-27 10:09 | XMS_ITS | Continuity of Care Document ---
Author Organization [employer] [place] Address [address] [place] [address] [address] [place] [address] Phone Care Team Providers Care Template Fitter Name Role Phone Darek PT, MYAT, Cory [...] Diagnoses Date Provider Providers Copied on Encounter [facility] [address] [address], [place], [place], [address], tel:[phone] [place] No Information Sergio-0 6-202 2 Klahn Cory. . [facility] [address], [id number], tel:[phone] [place] No Information Sep-1 5- 2 Klahn Cory. . Referring Provider: [address], [place], [address]. tel:[phone] [place] [address] [address] [address], [place], [place], [address], tel:[phone] [place] No Information 2 Klahn Cory. . Referring Provider: [address], [place], [address]. tel:[phone] [place] [address], [id number], [place] tel:[phone] [place] No Information Sep-0 6 2 Klahn Cory. . Referring Provider: [address], [place], [address]. tel:[phone] [place] [address], [address], [place] tel:[phone] [place] No Information Aug-3 0-202 2 Klahn Cory. . Referring Provider: [address], [place], [address]. tel:[phone] [place] [address] 2121 [facility], [place], [place], [address], [place] tel:[phone] [place] No Information Mar-2 8-202 2 Juliannen Cory. . Referring Provider: [address], [place], [address]. tel:[phone] [place], [place] [address] [address], [place], [place], [address], [place] tel:[phone] [place] No Information Mar-2 3-202 2 Klahn Cory. . Referring Provider: [address], [place], [address]. tel:[phone] [place], [place] [address] [address], [place], [place], [address], [place] tel:[phone] [place] No Information Mar-2 1-202 2 [place] Eladio. . Referring Provider: [address], [place], [address]. tel:[phone] [place], [place] [address] [address], [place], [place], [address], [place] tel:[phone] [place] No Information Mar-1 6-202 2 Juliannen Cory. . Referring Provider: [address], [place], [address]. tel:[phone] [place], [place] [address] [address], [place], [place], [address], [place] tel:[phone] [place] No Information Mar-2 7-202 0 Makler Luke. . [facility], [place], [place], [address], [place] tel:[phone] [place] No Information Mar-2 0-202 0 Makler Luke. . [facility], [place], [place], [address], [place] tel:[phone] [place] No Information Mar-1 1-202 0 Makler Luke. . [facility], [place], [place], [address], [place] tel:[phone] [place] No Information Mar-0 6-202 0 Makler Luke. . [facility], [place], [place], [address], [place] tel:[phone] [place] No Information - 0 Makler Luke. . [facility], [place], [place], [address], [place] tel:[phone] [place] No Information 0 Makler Luke. . [facility], [place], [place], [address], [place] tel:[phone] [place] No Information 0 Makler Luke. . [facility], [place], [place], [address], [place] tel:[phone] [place] No Information 0 Makler Luke. . [facility], [place], [place], [address], [place] tel:[phone] [place] No Information 0 Makler Luke. . [facility], [place], [place], [address], [place] tel:[phone] [place] No Information - 0 Makler Luke. . [facility], [place], [place], [address], [place] tel:[phone] [place] No Information 0- 0 Makler Luke. . [facility], [place], [place], [address], [place] tel:[phone] [place] No Information - 0 Makler Luke. . [facility], [place], [place], [address], [place] tel:[phone] [place] No Information 2- 0 Makler Luke. . [facility], [place], [place], [address], [place] tel:[phone] [place] No Information 0-201 9 Makler Luke. . [facility], [place], [place], [address], [place] tel:[phone] [place] No Information Dec-2 6-201 9 Makler Luke. . [facility], [place], [place], [address], [place] tel:[phone] [place] No Information Dec-2 4-201 9 Makler Luke. . [facility], [place], [place], [address], [place] tel:[phone] [place] No Information Dec-2 0-201 9 Makler Luke. . [facility], [place], [place], [address], [place] tel:[phone] [place] No Information Dec-1 6-201 9 Makler Luke. . [facility], [place], [place], [address], [place] tel:[phone] [place] No Information Dec-1 3-201 9 Makler Luke. . [facility], [place], [place], [address], [place] tel:[phone] [place] No Information Dec-0 4-201 9 Makler Luke. . [facility], [place], [place], [address], [place] tel:[phone] [place] No Information Dec-0 2-201 9 Makler Luke. . [facility], [place], [place], [address], [place] tel:[phone] [place] No Information Nov-2 2-201 9 Makler Luke. . [facility], [place], [place], [address], [place] tel:[phone] [place] No Information Nov-1 8-201 9 Makler Luke. . [facility], [place], [place], [address], [place] tel:[phone] [place] No Information 9 Makler Luke. . [facility], [place], [place], [address], [place] tel:[phone] [place] No Information 9 Makler Luke. . [facility], [place], [place], [address], [place] tel:[phone] [place] No Information 9 Makler Luke. . [facility], [place], [place], [address], [place] tel:[phone] [place] No Information 9 Makler Luke. . [facility], [place], [place], [address], [place] tel:[phone] [place] No Information 9 Makler Luke. . [facility], [place], [place], [address], [place] tel:[phone] [place] No Information 9 Makler Luke. . [facility], [place], [place], [address], [place] tel:[phone] [place] No Information 9 Makler Luke. . [facility], [place], [place], [address], [place] tel:[phone] [place] No Information 9 Makler Luke. . [facility], [place], [place], [address], [place] tel:[phone] [place] No Information 9 Makler Luke. . [facility], [place], [place], [address], [place] tel:[phone] [place] No Information 9 Makler Luke. . [facility] [place], [place], [place], [address], [place] tel:[phone] [place] No Information Teddy Bueno. . Family History Family Member Type Diagnosis Age At Onset No Information Payers Payer name Insurance type Covered constitution party ID Authoriza tiscot(s) Medicare [place] MB [id number] [facility] Medicare Supplement [id number] Social History Type Description Quantity Date Captured [...]
--- OUTSIDE RECORDS SUMMARY | 2021-11-27 10:09 | XMS_ITS | Continuity of Care Document ---
Author Organization [employer] [place] Address [address] [place] [address] [address] [place] [address] Phone Care Team Providers Care Photovoltaic Testing Technician Name Role Phone Darek PT, MYAT, Cory [...] Diagnoses Date Provider Providers Copied on Encounter [facility] [address] [address], [place], [place], [address], tel:[phone] [place] No Information Sergio-0 6-202 2 Klahn Cory. . [facility] [address], [id number], tel:[phone] [place] No Information Sep-1 5- 2 Klahn Cory. . Referring Provider: [address], [place], [address]. tel:[phone] [place] [address] [address] [address], [place], [place], [address], tel:[phone] [place] No Information 2 Klahn Cory. . Referring Provider: [address], [place], [address]. tel:[phone] [place] [address], [address], [place] tel:[phone] [place] No Information Sep-0 6 2 Klahn Cory. . Referring Provider: [address], [place], [address]. tel:[phone] [place] [address], [address], [place] tel:[phone] [place] No Information Aug-3 0-202 2 Klahn Cory. . Referring Provider: [address], [place], [address]. tel:[phone] [place] [address] 2121 [facility], [place], [place], [address], [place] tel:[phone] [place] No Information Mar-2 8-202 2 Juliannen Cory. . Referring Provider: [address], [place], [address]. tel:[phone] [place], [place] [address] [address], [place], [place], [address], [place] tel:[phone] [place] No Information Mar-2 3-202 2 Klahn Cory. . Referring Provider: [address], [place], [address]. tel:[phone] [address] [place], [place] [address] [address], [place], [place], [address], [place] tel:[phone] [place] No Information Mar-2 1-202 2 [place] Eladio. . Referring Provider: [address], [place], [address]. tel:[phone] [place], [place] [address] [address], [place], [place], [address], [place] tel:[phone] [place] No Information Mar-1 6-202 2 Juliannen Cory. . Referring Provider: [address], [place], [address]. tel:[phone] [place], [place] [address] [address], [place], [place], [address], [place] tel:[phone] [place] No Information Mar-2 7-202 0 Makler Luke. . [facility], [place], [place], [address], [place] tel:[phone] [place] No Information Mar-2 0-202 0 Makler Luke. . [facility], [place], [place], [address], [place] tel:[phone] [place] No Information Mar-1 1-202 0 Makler Luke. . [facility], [place], [place], [address], [place] tel:[phone] [place] No Information Mar-0 6-202 0 Makler Luke. . [facility], [place], [place], [address], [place] tel:[phone] [place] No Information - 0 Makler Luke. . [facility], [place], [place], [address], [place] tel:[phone] [place] No Information 0 Makler Luke. . [facility], [place], [place], [address], [place] tel:[phone] [place] No Information 0 Makler Luke. . [facility], [place], [place], [address], [place] tel:[phone] [place] No Information 0 Makler Luke. . [facility], [place], [place], [address], [place] tel:[phone] [place] No Information 0 Makler Luke. . [facility], [place], [place], [address], [place] tel:[phone] [place] No Information - 0 Makler Luke. . [facility], [place], [place], [address], [place] tel:[phone] [place] No Information 0- 0 Makler Luke. . [facility], [place], [place], [address], [place] tel:[phone] [place] No Information - 0 Makler Luke. . [facility], [place], [place], [address], [place] tel:[phone] [place] No Information 2- 0 Makler Luke. . [facility], [place], [place], [address], [place] tel:[phone] [place] No Information 0-201 9 Makler Luke. . [facility], [place], [place], [address], [place] tel:[phone] [place] No Information Dec-2 6-201 9 Makler Luke. . [facility], [place], [place], [address], [place] tel:[phone] [place] No Information Dec-2 4-201 9 Makler Luke. . [facility], [place], [place], [address], [place] tel:[phone] [place] No Information Dec-2 0-201 9 Makler Luke. . [facility], [place], [place], [address], [place] tel:[phone] [place] No Information Dec-1 6-201 9 Makler Luke. . [facility], [place], [place], [address], [place] tel:[phone] [place] No Information Dec-1 3-201 9 Makler Luke. . [facility], [place], [place], [address], [place] tel:[phone] [place] No Information Dec-0 4-201 9 Makler Luke. . [facility], [place], [place], [address], [place] tel:[phone] [place] No Information Dec-0 2-201 9 Makler Luke. . [facility], [place], [place], [address], [place] tel:[phone] [place] No Information Nov-2 2-201 9 Makler Luke. . [facility], [place], [place], [address], [place] tel:[phone] [place] No Information Nov-1 8-201 9 Makler Luke. . [facility], [place], [place], [address], [place] tel:[phone] [place] No Information 9 Makler Luke. . [facility], [place], [place], [address], [place] tel:[phone] [place] No Information 9 Makler Luke. . [facility], [place], [place], [address], [place] tel:[phone] [place] No Information 9 Makler Luke. . [facility], [place], [place], [address], [place] tel:[phone] [place] No Information 9 Makler Luke. . [facility], [place], [address], [place] tel:[phone] [place] No Information 9 Makler Luke. . [facility], [place], [address], [place] tel:[phone] [place] No Information 9 Makler Luke. . [facility], [place], [place], [address], [place] tel:[phone] [place] No Information 9 Makler Luke. . [facility], [place], [place], [address], [place] tel:[phone] [place] No Information 9 Makler Luke. . [facility], [place], [place], [address], [place] tel:[phone] [place] No Information 9 Makler Luke. . [facility], [place], [place], [address], [place] tel:[phone] [place] No Information 9 Makler Luke. . [facility] [place], [place], [place], [address], [place] tel:[phone] [place] No Information Teddy Bueno. . Family History Family Member Type Diagnosis Age At Onset No Information Payers Payer name Insurance type Covered green party ID Authoriza tiscot(s) Medicare [place] MB [id number] [facility] Medicare Supplement [id number] Social History Type Description Quantity Date Captured [...]
--- OUTSIDE RECORDS SUMMARY | 2021-11-27 10:09 | XMS_ITS | Continuity of Care Document ---
Author Organization [employer] [place] Address [address] [place] [address] [address] [place] [address] Phone Care Team Providers Care Senior Environmental Practice Leader Name Role Phone Darek PT, MYAT, Cory [...] Copied on Encounter [facility] [address] [address], [place], [place], [id number], tel:[phone] [place] No Information Sergio-0 6-202 2 Klahn Cory. . [facility] [address], [id number], tel:[phone] [place] No Information Sep-1 5- 2 Klahn Cory. . Referring Provider: [address], [place], [address]. tel:[phone] [place] [address] [address] [address], [place], [place], [id number], tel:[phone] [place] No Information 2 Klahn Cory. . Referring Provider: [address], [place], [address]. tel:[phone] [place] [address], [id number], [place] tel:[phone] [place] No Information Sep-0 6 2 Klahn Cory. . Referring Provider: [address], [place], [address]. tel:[phone] [place] [address], [id number], [place] tel:[phone] [place] No Information Aug-3 0-202 2 Klahn Cory. . Referring Provider: [address], [place], [address]. tel:[phone] [place] [address] [facility], [place], [place], [id number], [place] tel:[phone] [place] No Information Mar-2 8-202 2 Juliannen Cory. . Referring Provider: [address], [place], [address]. tel:[phone] [place], [place] [address] [address], [place], [place], [address], [place] tel:[phone] [place] No Information Mar-2 3-202 2 Klahn Cory. . Referring Provider: [address], [place], [address]. tel:[phone] [place], [place] [address] [address], [place], [place], [address], [place] tel:[phone] [place] No Information Mar-2 1-202 2 [place] Eladio. . Referring Provider: [address], [place], [address]. tel:[phone] [place], [place] [address] [address], [place], [place], [id number], [place] tel:[phone] [place] No Information Mar-1 6-202 2 Juliannen Cory. . Referring Provider: [address], [place], [address]. tel:[phone] [place], [place] [address] [address], [place], [place], [address], [place] tel:[phone] [place] No Information Mar-2 7-202 0 Makler Luke. . [facility], [place], [place], [address], [place] tel:[phone] [place] No Information Mar-2 0-202 0 Makler Luke. . [facility], [place], [place], [address], [place] tel:[phone] [place] No Information Mar-1 1-202 0 Makler Luke. . [facility], [place], [place], [address], [place] tel:[phone] [place] No Information Mar-0 6-202 0 Makler Luke. . [facility], [place], [place], [address], [place] tel:[phone] [place] No Information - 0 Makler Luke. . [facility], [place], [address], [place] tel:[phone] [place] No Information 0 Makler Luke. . [facility], [place], [address], [place] tel:[phone] [place] No Information 0 Makler Luke. . [facility], [place], [address], [place] tel:[phone] [place] No Information 0 Makler Luke. . [facility], [place], [place], [address], [place] tel:[phone] [place] No Information 0 Makler Luke. . [facility], [place], [address], [place] tel:[phone] [place] No Information - 0 Makler Luke. . [facility], [place], [place], [address], [place] tel:[phone] [place] No Information 0- 0 Makler Luke. . [facility], [place], [place], [address], [place] tel:[phone] [place] No Information - 0 Makler Luke. . [facility], [place], [place], [address], [place] tel:[phone] [place] No Information 2- 0 Makler Luke. . [facility], [place], [place], [address], [place] tel:[phone] [place] No Information 0-201 9 Makler Luke. . [facility], [place], [address], [place] tel:[phone] [place] No Information Dec-2 6-201 9 Makler Luke. . [facility], [place], [address], [place] tel:[phone] [place] No Information Dec-2 4-201 9 Makler Luke. . [facility], [place], [place], [address], [place] tel:[phone] [place] No Information Dec-2 0-201 9 Makler Luke. . [facility], [place], [place], [address], [place] tel:[phone] [place] No Information Dec-1 6-201 9 Makler Luke. . [facility], [place], [address], [place] tel:[phone] [place] No Information Dec-1 3-201 9 Makler Luke. . [facility], [place], [place], [address], [place] tel:[phone] [place] No Information Dec-0 4-201 9 Makler Luke. . [facility], [place], [place], [address], [place] tel:[phone] [place] No Information Dec-0 2-201 9 Makler Luke. . [facility], [place], [place], [address], [place] tel:[phone] [place] No Information Nov-2 2-201 9 Makler Luke. . [facility], [place], [place], [address], [place] tel:[phone] [place] No Information Nov-1 8-201 9 Makler Luke. . [facility], [place], [place], [address], [place] tel:[phone] [place] No Information 9 Makler Luke. . [facility], [place], [place], [address], [place] tel:[phone] [place] No Information 9 Makler Luke. . [facility], [place], [address], [place] tel:[phone] [place] No Information 9 Makler Luke. . [facility], [place], [address], [place] tel:[phone] [place] No Information 9 Makler Luke. . [facility], [place], [place], [address], [place] tel:[phone] [place] No Information 9 Makler Luke. . [facility], [place], [place], [address], [place] tel:[phone] [place] No Information 9 Makler Luke. . [facility], [place], [address], [place] tel:[phone] [place] No Information 9 Makler Luke. . [facility], [place], [place], [address], [place] tel:[phone] [place] No Information 9 Makler Luke. . [facility], [place], [place], [address], [place] tel:[phone] [place] No Information 9 Makler Luke. . [facility], [place], [place], [address], [place] tel:[phone] [place] No Information 9 Makler Luke. . [facility] [place], [place], [place], [address], [place] tel:[phone] [place] No Information Teddy Bueno. . Family History Family Member Type Diagnosis Age At Onset No Information Payers Payer name Insurance type Covered constitution party ID Authoriza tiscot(s) Medicare [place] MB [id number] [facility] Medicare Supplement [id number] Social History Type Description Quantity Date Captured [...]
--- OUTSIDE RECORDS SUMMARY | 2021-11-27 10:09 | XMS_ITS | Continuity of Care Document ---
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 . [facility] [address], [id number], tel:[phone] [place] No Information Sep-1 5- 2 Klahn Cory. . Referring Provider: [address], [place], [address]. tel:[phone] [place] [address] [address] [address], [place], [place], [address], tel:[phone] [place] No Information 2 Klahn Cory. . Referring Provider: [address], [place], [address]. tel:[phone] [place] [address], [id number], [place] tel:[phone] [place] No Information Sep-0 6 2 Klahn Cory. . Referring Provider: [address], [place], [address]. tel:[phone] [place] [address], [id number], [place] tel:[phone] [place] No Information Aug-3 0-202 2 Klahn Cory. . Referring Provider: [address], [place], [address]. tel:[phone] [place] [address] 2121 [facility], [place], [place], [address], [place] tel:[phone] [place] No Information Mar-2 8-202 2 Juliannen Cory. . Referring Provider: [address], [place], [address]. tel:[phone] [place], [place] [address] [address], [place], [place], [address], [place] tel:[phone] [place] No Information Mar-2 3-202 2 Klahn Coyr. . Referring Provider: [address], [place], [address]. tel:[phone] [place], [place] [address] [address], [place], [place], [address], [place] tel:[phone] [place] No Information Mar-2 1-202 2 [place] Eladio. . Referring Provider: [address], [place], [address]. tel:[phone] [place], [place] [address] [address], [place], [place], [address], [place] tel:[phone] [place] No Information Mar-1 6-202 2 Juliannen Cory. . Referring Provider: [address], [place], [address]. tel:[phone] [place], [place] [address] [address], [place], [place], [address], [place] tel:[phone] [place] No Information Mar-2 7-202 0 Makler Luke. . [facility], [place], [place], [address], [place] tel:[phone] [place] No Information Mar-2 0-202 0 Makler Luke. . [facility], [place], [place], [address], [place] tel:[phone] [place] No Information Mar-1 1-202 0 Makler Luke. . [facility], [place], [place], [address], [place] tel:[phone] [place] No Information Mar-0 6-202 0 Makler Luke. . [facility], [place], [place], [address], [place] tel:[phone] [place] No Information - 0 Makler Luke. . [facility], [place], [place], [address], [place] tel:[phone] [place] No Information 0 Makler Luke. . [facility], [place], [place], [address], [place] tel:[phone] [place] No Information 0 Makler Luke. . [facility], [place], [place], [address], [place] tel:[phone] [place] No Information 0 Makler Luke. . [facility], [place], [place], [address], [place] tel:[phone] [place] No Information 0 Makler Luke. . [facility], [place], [place], [address], [place] tel:[phone] [place] No Information - 0 Makler Luke. . [facility], [place], [place], [address], [place] tel:[phone] [place] No Information 0- 0 Makler Luke. . [facility], [place], [place], [address], [place] tel:[phone] [place] No Information - 0 Makler Luke. . [facility], [place], [place], [address], [place] tel:[phone] [place] No Information 2- 0 Makler Luke. . [facility], [place], [place], [address], [place] tel:[phone] [place] No Information 0-201 9 Makler Luke. . [facility], [place], [place], [address], [place] tel:[phone] [place] No Information Dec-2 6-201 9 Makler Luke. . [facility], [place], [place], [address], [place] tel:[phone] [place] No Information Dec-2 4-201 9 Makler Luke. . [facility], [place], [place], [address], [place] tel:[phone] [place] No Information Dec-2 0-201 9 Makler Luke. . [facility], [place], [place], [address], [place] tel:[phone] [place] No Information Dec-1 6-201 9 Makler Luke. . [facility], [place], [place], [address], [place] tel:[phone] [place] No Information Dec-1 3-201 9 Makler Luke. . [facility], [place], [place], [address], [place] tel:[phone] [place] No Information Dec-0 4-201 9 Makler Luke. . [facility], [place], [place], [address], [place] tel:[phone] [place] No Information Dec-0 2-201 9 Makler Luke. . [facility], [place], [place], [address], [place] tel:[phone] [place] No Information Nov-2 2-201 9 Makler Luke. . [facility], [place], [place], [address], [place] tel:[phone] [place] No Information Nov-1 8-201 9 Makler Luke. . [facility], [place], [place], [address], [place] tel:[phone] [place] No Information 9 Makler Luke. . [facility], [place], [place], [address], [place] tel:[phone] [place] No Information 9 Makler Luke. . [facility], [place], [place], [address], [place] tel:[phone] [place] No Information 9 Makler Luke. . [facility], [place], [place], [address], [place] tel:[phone] [place] No Information 9 Makler Luke. . [facility], [place], [place], [address], [place] tel:[phone] [place] No Information 9 Makler Luke. . [facility], [place], [place], [address], [place] tel:[phone] [place] No Information 9 Makler Luke. . [facility], [place], [place], [address], [place] tel:[phone] [place] No Information 9 Makler Luke. . [facility], [place], [place], [address], [place] tel:[phone] [place] No Information 9 Makler Luke. . [facility], [place], [place], [address], [place] tel:[phone] [place] No Information 9 Makler Luke. . [facility], [place], [place], [address], [place] tel:[phone] [place] No Information 9 Makler Luke. . [facility] [place], [place], [place], [address], [place] tel:[phone] [place] No Information Teddy Bueno. . Family History Family Member Type Diagnosis Age At Onset No Information Payers Payer name Insurance type Covered democrat ID Authoriza tiscot(s) Medicare [place] MB [id number] [facility] Medicare Supplement [id number] Social History Type Description Quantity Date Captured [...]
--- OUTSIDE RECORDS SUMMARY | 2021-11-27 10:09 | XMS_ITS | Continuity of Care Document ---
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 . [facility] [address], [id number], tel:[phone] [place] No Information Sep-1 5- 2 Klahn Cory. . Referring Provider: [address], [place], [address]. tel:[phone] [place] [address] [address] [address], [place], [place], [address], tel:[phone] [place] No Information 2 Klahn Cory. . Referring Provider: [address], [place], [address]. tel:[phone] [place] [address], [id number], [place] tel:[phone] [place] No Information Sep-0 6 2 Klahn Cory. . Referring Provider: [address], [place], [address]. tel:[phone] [place] [address], [id number], [place] tel:[phone] [place] No Information Aug-3 0-202 2 Klahn Cory. . Referring Provider: [address], [place], [address]. tel:[phone] [place] [address] 2121 [facility], [place], [place], [address], [place] tel:[phone] [place] No Information Mar-2 8-202 2 Juliannen Cory. . Referring Provider: [address], [place], [address]. tel:[phone] [place], [place] [address] [address], [place], [place], [address], [place] tel:[phone] [place] No Information Mar-2 3-202 2 Klahn Cory. . Referring Provider: [address], [place], [address]. tel:[phone] [place], [place] [address] [address], [place], [place], [address], [place] tel:[phone] [place] No Information Mar-2 1-202 2 Modglin Eladio. . Referring Provider: [address], [place], [address]. tel:[phone] [place], [place] [address] [address], [place], [place], [address], [place] tel:[phone] [place] No Information Mar-1 6-202 2 Juliannen Cory. . Referring Provider: [address], [place], [address]. tel:[phone] [place], [place] [address] [address], [place], [place], [address], [place] tel:[phone] [place] No Information Mar-2 7-202 0 Makler Luke. . [facility], [place], [place], [address], [place] tel:[phone] [place] No Information Mar-2 0-202 0 Makler Luke. . [facility], [place], [place], [address], [place] tel:[phone] [place] No Information Mar-1 1-202 0 Makler Luke. . [facility], [place], [place], [address], [place] tel:[phone] [place] No Information Mar-0 6-202 0 Makler Luke. . [facility], [place], [place], [address], [place] tel:[phone] [place] No Information - 0 Makler Luke. . [facility], [place], [address], [place] tel:[phone] [place] No Information 0 Makler Luke. . [facility], [place], [place], [address], [place] tel:[phone] [place] No Information 0 Makler Luke. . [facility], [place], [place], [address], [place] tel:[phone] [place] No Information 0 Makler Luke. . [facility], [place], [place], [address], [place] tel:[phone] [place] No Information 0 Makler Luke. . [facility], [place], [address], [place] tel:[phone] [place] No Information - 0 Makler Luke. . [facility], [place], [place], [address], [place] tel:[phone] [place] No Information 0- 0 Makler Luke. . [facility], [place], [place], [address], [place] tel:[phone] [place] No Information - 0 Makler Luke. . [facility], [place], [address], [place] tel:[phone] [place] No Information 2- 0 Makler Luke. . [facility], [place], [place], [address], [place] tel:[phone] [place] No Information 0-201 9 Makler Luke. . [facility], [place], [place], [address], [place] tel:[phone] [place] No Information Dec-2 6-201 9 Makler Luke. . [facility], [place], [place], [address], [place] tel:[phone] [place] No Information Dec-2 4-201 9 Makler Luke. . [facility], [place], [address], [place] tel:[phone] [place] No Information Dec-2 0-201 9 Makler Luke. . [facility], [place], [address], [place] tel:[phone] [place] No Information Dec-1 6-201 9 Makler Luke. . [facility], [place], [place], [address], [place] tel:[phone] [place] No Information Dec-1 3-201 9 Makler Luke. . [facility], [place], [place], [address], [place] tel:[phone] [place] No Information Dec-0 4-201 9 Makler Luke. . [facility], [place], [place], [address], [place] tel:[phone] [place] No Information Dec-0 2-201 9 Makler Luke. . [facility], [place], [place], [address], [place] tel:[phone] [place] No Information Nov-2 2-201 9 Makler Luke. . [facility], [place], [place], [address], [place] tel:[phone] [place] No Information Nov-1 8-201 9 Makler Luke. . [facility], [place], [place], [address], [place] tel:[phone] [place] No Information 9 Makler Luke. . [facility], [place], [place], [address], [place] tel:[phone] [place] No Information 9 Makler Luke. . [facility], [place], [place], [address], [place] tel:[phone] [place] No Information 9 Makler Luke. . [facility], [place], [place], [address], [place] tel:[phone] [place] No Information 9 Makler Luke. . [facility], [place], [place], [address], [place] tel:[phone] [place] No Information 9 Makler Luke. . [facility], [place], [place], [address], [place] tel:[phone] [place] No Information 9 Makler Luke. . [facility], [place], [address], [place] tel:[phone] [place] No Information 9 Makler Luke. . [facility], [place], [place], [address], [place] tel:[phone] [place] No Information 9 Makler Luke. . [facility], [place], [place], [address], [place] tel:[phone] [place] No Information 9 Makler Luke. . [facility], [place], [place], [address], [place] tel:[phone] [place] No Information 9 Makler Luke. . [facility], [place], [place], [address], [place] tel:[phone] [place] No Information Teddy Bueno. . Family History Family Member Type Diagnosis Age At Onset No Information Payers Payer name Insurance type Covered libertarian ID Authoriza tiscot(s) Medicare [place] MB [id number] [facility] Medicare Supplement [id number] Social History Type Description Quantity Date Captured [...]
--- OUTSIDE RECORDS SUMMARY | 2021-11-27 10:09 | XMS_ITS | Continuity of Care Document ---
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 . [facility] [address], [id number], tel:[phone] [place] No Information Sep-1 5- 2 Klahn Cory. . Referring Provider: [address], [place], [address]. tel:[phone] [place] [address] [address] [address], [place], [place], [address], tel:[phone] [place] No Information 2 Klahn Cory. . Referring Provider: [address], [place], [address]. tel:[phone] [place] [address], [id number], [place] tel:[phone] [place] No Information Sep-0 6 2 Klahn Cory. . Referring Provider: [address], [place], [address]. tel:[phone] [place] [address], [id number], [place] tel:[phone] [place] No Information Aug-3 0-202 2 Klahn Cory. . Referring Provider: [address], [place], [address]. tel:[phone] [place] [address] 2121 [facility], [place], [place], [address], [place] tel:[phone] [place] No Information Mar-2 8-202 2 Juliannen Cory. . Referring Provider: [address], [place], [address]. tel:[phone] [place], [place] [address] [address], [place], [place], [address], [place] tel:[phone] [place] No Information Mar-2 3-202 2 Klahn Cory. . Referring Provider: [address], [place], [address]. tel:[phone] [place], [place] [address] [address], [place], [place], [address], [place] tel:[phone] [place] No Information Mar-2 1-202 2 Modglin Eladio. . Referring Provider: [address], [place], [address]. tel:[phone] [place], [place] [address] [address], [place], [place], [address], [place] tel:[phone] [place] No Information Mar-1 6-202 2 Juliannen Cory. . Referring Provider: [address], [place], [address]. tel:[phone] [place], [place] [address] [address], [place], [place], [address], [place] tel:[phone] [place] No Information Mar-2 7-202 0 Makler Luke. . [facility], [place], [place], [address], [place] tel:[phone] [place] No Information Mar-2 0-202 0 Makler Luke. . [facility], [place], [place], [address], [place] tel:[phone] [place] No Information Mar-1 1-202 0 Makler Luke. . [facility], [place], [place], [address], [place] tel:[phone] [place] No Information Mar-0 6-202 0 Makler Luke. . [facility], [place], [place], [address], [place] tel:[phone] [place] No Information - 0 Makler Luke. . [facility], [place], [place], [address], [place] tel:[phone] [place] No Information 0 Makler Luke. . [facility], [place], [place], [address], [place] tel:[phone] [place] No Information 0 Makler Luke. . [facility], [place], [place], [address], [place] tel:[phone] [place] No Information 0 Makler Luke. . [facility], [place], [place], [address], [place] tel:[phone] [place] No Information 0 Makler Luke. . [facility], [place], [place], [address], [place] tel:[phone] [place] No Information - 0 Makler Luke. . [facility], [place], [place], [address], [place] tel:[phone] [place] No Information 0- 0 Makler Luke. . [facility], [place], [place], [address], [place] tel:[phone] [place] No Information - 0 Makler Luke. . [facility], [place], [place], [address], [place] tel:[phone] [place] No Information 2- 0 Makler Luke. . [facility], [place], [place], [address], [place] tel:[phone] [place] No Information 0-201 9 Makler Luke. . [facility], [place], [place], [address], [place] tel:[phone] [place] No Information Dec-2 6-201 9 Makler Luke. . [facility], [place], [place], [address], [place] tel:[phone] [place] No Information Dec-2 4-201 9 Makler Luke. . [facility], [place], [place], [address], [place] tel:[phone] [place] No Information Dec-2 0-201 9 Makler Luke. . [facility], [place], [place], [address], [place] tel:[phone] [place] No Information Dec-1 6-201 9 Makler Luke. . [facility], [place], [place], [address], [place] tel:[phone] [place] No Information Dec-1 3-201 9 Makler Luke. . [facility], [place], [place], [address], [place] tel:[phone] [place] No Information Dec-0 4-201 9 Makler Luke. . [facility], [place], [place], [address], [place] tel:[phone] [place] No Information Dec-0 2-201 9 Makler Luke. . [facility], [place], [place], [address], [place] tel:[phone] [place] No Information Nov-2 2-201 9 Makler Luke. . [facility], [place], [place], [address], [place] tel:[phone] [place] No Information Nov-1 8-201 9 Makler Luke. . [facility], [place], [place], [address], [place] tel:[phone] [place] No Information 9 Makler Luke. . [facility], [place], [place], [address], [place] tel:[phone] [place] No Information 9 Makler Luke. . [facility], [place], [place], [address], [place] tel:[phone] [place] No Information 9 Makler Luke. . [facility], [place], [place], [address], [place] tel:[phone] [place] No Information 9 Makler Luke. . [facility], [place], [place], [address], [place] tel:[phone] [place] No Information 9 Makler Luke. . [facility], [place], [place], [address], [place] tel:[phone] [place] No Information 9 Makler Luke. . [facility], [place], [place], [address], [place] tel:[phone] [place] No Information 9 Makler Luke. . [facility], [place], [place], [address], [place] tel:[phone] [place] No Information 9 Makler Luke. . [facility], [place], [place], [address], [place] tel:[phone] [place] No Information 9 Makler Luke. . [facility], [place], [place], [address], [place] tel:[phone] [place] No Information 9 Makler Luke. . [facility] [place], [place], [place], [address], [place] tel:[phone] [place] No Information Teddy Bueno. . Family History Family Member Type Diagnosis Age At Onset No Information Payers Payer name Insurance type Covered republican ID Authoriza tiscot(s) Medicare [place] MB [id number] [facility] Medicare Supplement [id number] Social History Type Description Quantity Date Captured [...]
--- OUTSIDE RECORDS SUMMARY | 2021-11-27 10:09 | XMS_ITS | Continuity of Care Document ---
Author Organization [facility] [place] Address [address] [place] [address] [address] [place] [address] Phone Care Team Providers Care Stave Saw Operator Name Role Phone Darek PT, MYAT, [...] Diagnoses Date Provider Providers Copied on Encounter [facility] [address] [address], [place], [place], [address], tel:[phone] [place] No Information Sergio-0 6-202 2 Klahn Cory. . [facility] [address], [id number], tel:[phone] [place] No Information Sep-1 5- 2 Klahn Cory. . Referring Provider: [address], [place], [address]. tel:[phone] [place] [address] [address] [address], [place], [place], [address], tel:[phone] [place] No Information 2 Klahn Cory. . Referring Provider: [address], [place], [address]. tel:[phone] [place] [address], [address], [place] tel:[phone] [place] No Information Sep-0 6 2 Klahn Cory. . Referring Provider: [address], [place], [address]. tel:[phone] [place] [address], [address], [place] tel:[phone] [place] No Information Aug-3 0-202 2 Klahn Cory. . Referring Provider: [address], [place], [address]. tel:[phone] [place] [address] 2121 [facility], [place], [place], [address], [place] tel:[phone] [place] No Information Mar-2 8-202 2 Juliannen Cory. . Referring Provider: [address], [place], [address]. tel:[phone] [place], [place] [address] [address], [place], [place], [address], [place] tel:[phone] [place] No Information Mar-2 3-202 2 Klahn Cory. . Referring Provider: [address], [place], [address]. tel:[phone] [place], [place] [address] [address], [place], [place], [address], [place] tel:[phone] [place] No Information Mar-2 1-202 2 Modglin Eladio. . Referring Provider: [address], [place], [address]. tel:[phone] [place], [place] [address] [address], [place], [address], [place] tel:[phone] [place] No Information Mar-1 6-202 2 Juliannen Cory. . Referring Provider: [address], [place], [address]. tel:[phone] [place], [place] [address] [address], [place], [place], [address], [place] tel:[phone] [place] No Information Mar-2 7-202 0 Makler Luke. . [facility], [place], [place], [address], [place] tel:[phone] [place] No Information Mar-2 0-202 0 Makler Luke. . [facility], [place], [place], [address], [place] tel:[phone] [place] No Information Mar-1 1-202 0 Makler Luke. . [facility], [place], [place], [address], [place] tel:[phone] [place] No Information Mar-0 6-202 0 Makler Luke. . [facility], [place], [place], [address], [place] tel:[phone] [place] No Information - 0 Makler Luke. . [facility], [place], [place], [address], [place] tel:[phone] [place] No Information 0 Makler Luke. . [facility], [place], [place], [address], [place] tel:[phone] [place] No Information 0 Makler Luke. . [facility], [place], [place], [address], [place] tel:[phone] [place] No Information 0 Makler Luke. . [facility], [place], [place], [address], [place] tel:[phone] [place] No Information 0 Makler Luke. . [facility], [place], [place], [address], [place] tel:[phone] [place] No Information - 0 Makler Luke. . [facility], [place], [place], [address], [place] tel:[phone] [place] No Information 0- 0 Makler Luke. . [facility], [place], [place], [address], [place] tel:[phone] [place] No Information - 0 Makler Luke. . [facility], [place], [place], [address], [place] tel:[phone] [place] No Information 2- 0 Makler Luke. . [facility], [place], [place], [address], [place] tel:[phone] [place] No Information 0-201 9 Makler Luke. . [facility], [place], [place], [address], [place] tel:[phone] [place] No Information Dec-2 6-201 9 Makler Luke. . [facility], [place], [place], [address], [place] tel:[phone] [place] No Information Dec-2 4-201 9 Makler Luke. . [facility], [place], [place], [address], [place] tel:[phone] [place] No Information Dec-2 0-201 9 Makler Luke. . [facility], [place], [place], [address], [place] tel:[phone] [place] No Information Dec-1 6-201 9 Makler Luke. . [facility], [place], [place], [address], [place] tel:[phone] [place] No Information Dec-1 3-201 9 Makler Luke. . [facility], [place], [place], [address], [place] tel:[phone] [place] No Information Dec-0 4-201 9 Makler Luke. . [facility], [place], [place], [address], [place] tel:[phone] [place] No Information Dec-0 2-201 9 Makler Luke. . [facility], [place], [place], [address], [place] tel:[phone] [place] No Information Nov-2 2-201 9 Makler Luke. . [facility], [place], [place], [address], [place] tel:[phone] [place] No Information Nov-1 8-201 9 Makler Luke. . [facility], [place], [place], [address], [place] tel:[phone] [place] No Information 9 Makler Luke. . [facility], [place], [place], [address], [place] tel:[phone] [place] No Information 9 Makler Luke. . [facility], [place], [place], [address], [place] tel:[phone] [place] No Information 9 Makler Luke. . [facility], [place], [place], [address], [place] tel:[phone] [place] No Information 9 Makler Luke. . [facility], [place], [place], [address], [place] tel:[phone] [place] No Information 9 Makler Luke. . [facility], [place], [place], [address], [place] tel:[phone] [place] No Information 9 Makler Luke. . [facility], [place], [place], [address], [place] tel:[phone] [place] No Information 9 Makler Luke. . [facility], [place], [place], [address], [place] tel:[phone] [place] No Information 9 Makler Luke. . [facility], [place], [place], [address], [place] tel:[phone] [place] No Information 9 Makler Luke. . [facility], [place], [place], [address], [place] tel:[phone] [place] No Information 9 Makler Luke. . [facility] [place], [place], [place], [address], [place] tel:[phone] [place] No Information Teddy Bueno. . Family History Family Member Type Diagnosis Age At Onset No Information Payers Payer name Insurance type Covered alliance party ID Authoriza tiscot(s) Medicare [place] MB [id number] [facility] Medicare Supplement [id number] Social History Type Description Quantity Date Captured [...]
--- OUTSIDE RECORDS SUMMARY | 2021-11-27 10:09 | XMS_ITS | Continuity of Care Document ---
Author Organization [employer] [place] Address [address] [place] [address] [address] [place] [address] Phone Care Team Providers Care Online Facilitator Name Role Phone Darek PT, MYAT, Cory [...] Date Provider Providers Copied on Encounter [facility] [address] [address], [place], [place], [id number], tel:[phone] [place] No Information Sergio-0 6-202 2 Klahn Cory. . [facility] [address], [id number], tel:[phone] [place] No Information Sep-1 5- 2 Klahn Cory. . Referring Provider: [address], [place], [address]. tel:[phone] [place] [address] [address] [address], [place], [place], [address], tel:[phone] [place] No Information 2 Klahn Cory. . Referring Provider: [address], [place], [address]. tel:[phone] [place] [address], [id number], [place] tel:[phone] [place] No Information Sep-0 6 2 Klahn Cory. . Referring Provider: [address], [place], [address]. tel:[phone] [place] [address], [id number], [place] tel:[phone] [place] No Information Aug-3 0-202 2 Klahn Cory. . Referring Provider: [address], [place], [address]. tel:[phone] [place] [address] 2121 [facility], [place], [place], [address], [place] tel:[phone] [place] No Information Mar-2 8-202 2 Juliannen Cory. . Referring Provider: [address], [place], [address]. tel:[phone] [address] [place], [place] [address] [address], [place], [place], [address], [place] tel:[phone] [place] No Information Mar-2 3-202 2 Klahn Cory. . Referring Provider: [address], [place], [address]. tel:[phone] [place], [place] [address] [address], [place], [place], [address], [place] tel:[phone] [place] No Information Mar-2 1-202 2 Modglin Eladio. . Referring Provider: [address], [place], [address]. tel:[phone] [place], [place] [address] [address], [place], [place], [address], [place] tel:[phone] [place] No Information Mar-1 6-202 2 Juliannen Cory. . Referring Provider: [address], [place], [address]. tel:[phone] [place], [place] [address] [address], [place], [place], [address], [place] tel:[phone] [place] No Information Mar-2 7-202 0 Makler Luke. . [facility], [place], [place], [address], [place] tel:[phone] [place] No Information Mar-2 0-202 0 Makler Luke. . [facility], [place], [place], [address], [place] tel:[phone] [place] No Information Mar-1 1-202 0 Makler Luke. . [facility], [place], [place], [address], [place] tel:[phone] [place] No Information Mar-0 6-202 0 Makler Luke. . [facility], [place], [place], [address], [place] tel:[phone] [place] No Information - 0 Makler Luke. . [facility], [place], [place], [address], [place] tel:[phone] [place] No Information 0 Makler Luke. . [facility], [place], [place], [address], [place] tel:[phone] [place] No Information 0 Makler Luke. . [facility], [place], [place], [address], [place] tel:[phone] [place] No Information 0 Makler Luke. . [facility], [place], [place], [address], [place] tel:[phone] [place] No Information 0 Makler Luke. . [facility], [place], [place], [address], [place] tel:[phone] [place] No Information - 0 Makler Luke. . [facility], [place], [place], [address], [place] tel:[phone] [place] No Information 0- 0 Makler Luke. . [facility], [place], [place], [address], [place] tel:[phone] [place] No Information - 0 Makler Luke. . [facility], [place], [place], [address], [place] tel:[phone] [place] No Information 2- 0 Makler Luke. . [facility], [place], [place], [address], [place] tel:[phone] [place] No Information 0-201 9 Makler Luke. . [facility], [place], [place], [address], [place] tel:[phone] [place] No Information Dec-2 6-201 9 Makler Luke. . [facility], [place], [place], [address], [place] tel:[phone] [place] No Information Dec-2 4-201 9 Makler Luke. . [facility], [place], [place], [address], [place] tel:[phone] [place] No Information Dec-2 0-201 9 Makler Luke. . [facility], [place], [place], [address], [place] tel:[phone] [place] No Information Dec-1 6-201 9 Makler Luke. . [facility], [place], [place], [address], [place] tel:[phone] [place] No Information Dec-1 3-201 9 Makler Luke. . [facility], [place], [place], [address], [place] tel:[phone] [place] No Information Dec-0 4-201 9 Makler Luke. . [facility], [place], [place], [address], [place] tel:[phone] [place] No Information Dec-0 2-201 9 Makler Luke. . [facility], [place], [place], [address], [place] tel:[phone] [place] No Information Nov-2 2-201 9 Makler Luke. . [facility], [place], [place], [address], [place] tel:[phone] [place] No Information Nov-1 8-201 9 Makler Luke. . [facility], [place], [place], [address], [place] tel:[phone] [place] No Information 9 Makler Luke. . [facility], [place], [place], [address], [place] tel:[phone] [place] No Information 9 Makler Luke. . [facility], [place], [place], [address], [place] tel:[phone] [place] No Information 9 Makler Luke. . [facility], [place], [place], [address], [place] tel:[phone] [place] No Information 9 Makler Luke. . [facility], [place], [place], [address], [place] tel:[phone] [place] No Information 9 Makler Luke. . [facility], [place], [place], [address], [place] tel:[phone] [place] No Information 9 Makler Luke. . [facility], [place], [place], [address], [place] tel:[phone] [place] No Information 9 Makler Luke. . [facility], [place], [place], [address], [place] tel:[phone] [place] No Information 9 Makler Luke. . [facility], [place], [place], [address], [place] tel:[phone] [place] No Information 9 Makler Luke. . [facility], [place], [place], [address], [place] tel:[phone] [place] No Information 9 Makler Luke. . [facility] [place], [place], [place], [address], [place] tel:[phone] [place] No Information Teddy Bueno. . Family History Family Member Type Diagnosis Age At Onset No Information Payers Payer name Insurance type Covered green party ID Authoriza tiscot(s) Medicare [place] MB [id number] [facility] Medicare Supplement [id number] Social History Type Description Quantity Date Captured [...]
--- OUTSIDE RECORDS SUMMARY | 2021-11-27 10:09 | XMS_ITS | Continuity of Care Document ---
Author Organization [employer] [place] Address [address] [place] [address] [address] [place] [address] Phone Care Team Providers Care Motor Equipment Sergeant Name Role Phone Darek PT, MYAT, Cory [...] Date Provider Providers Copied on Encounter [facility] [address] [address], [place], [place], [address], tel:[phone] [place] No Information Sergio-0 6-202 2 Klahn Cory. . [facility] [address], [id number], tel:[phone] [place] No Information Sep-1 5- 2 Klahn Cory. . Referring Provider: [address], [place], [address]. tel:[phone] [place] [address] [address] [address], [place], [place], [address], tel:[phone] [place] No Information 2 Klahn Cory. . Referring Provider: [address], [place], [address]. tel:[phone] [place] [address], [address], [place] tel:[phone] [place] No Information Sep-0 6 2 Klahn Cory. . Referring Provider: [address], [place], [address]. tel:[phone] [place] [address], [address], [place] tel:[phone] [place] No Information Aug-3 0-202 2 Klahn Cory. . Referring Provider: [address], [place], [address]. tel:[phone] [place] [address] 2121 [facility], [place], [place], [address], [place] tel:[phone] [place] No Information Mar-2 8-202 2 Juliannen Cory. . Referring Provider: [address], [place], [address]. tel:[phone] [place], [place] [address] [address], [place], [place], [address], [place] tel:[phone] [place] No Information Mar-2 3-202 2 Klahn Cory. . Referring Provider: [address], [place], [address]. tel:[phone] [place], [place] [address] [address], [place], [place], [address], [place] tel:[phone] [place] No Information Mar-2 1-202 2 Modglin Eladio. . Referring Provider: [address], [place], [address]. tel:[phone] [place], [place] [address] [address], [place], [place], [address], [place] tel:[phone] [place] No Information Mar-1 6-202 2 Juliannen Cory. . Referring Provider: [address], [place], [address]. tel:[phone] [place], [place] [address] [address], [place], [place], [address], [place] tel:[phone] [place] No Information Mar-2 7-202 0 Makler Luke. . [facility], [place], [place], [address], [place] tel:[phone] [place] No Information Mar-2 0-202 0 Makler Luke. . [facility], [place], [place], [address], [place] tel:[phone] [place] No Information Mar-1 1-202 0 Makler Luke. . [facility], [place], [place], [address], [place] tel:[phone] [place] No Information Mar-0 6-202 0 Makler Luke. . [facility], [place], [place], [address], [place] tel:[phone] [place] No Information - 0 Makler Luke. . [facility], [place], [place], [address], [place] tel:[phone] [place] No Information 0 Makler Luke. . [facility], [place], [place], [address], [place] tel:[phone] [place] No Information 0 Makler Luke. . [facility], [place], [place], [address], [place] tel:[phone] [place] No Information 0 Makler Luke. . [facility], [place], [place], [address], [place] tel:[phone] [place] No Information 0 Makler Luke. . [facility], [place], [place], [address], [place] tel:[phone] [place] No Information - 0 Makler Luke. . [facility], [place], [place], [address], [place] tel:[phone] [place] No Information 0- 0 Makler Luke. . [facility], [place], [place], [address], [place] tel:[phone] [place] No Information - 0 Makler Luke. . [facility], [place], [place], [address], [place] tel:[phone] [place] No Information 2- 0 Makler Luke. . [facility], [place], [place], [address], [place] tel:[phone] [place] No Information 0-201 9 Makler Luke. . [facility], [place], [place], [address], [place] tel:[phone] [place] No Information Dec-2 6-201 9 Makler Luke. . [facility], [place], [place], [address], [place] tel:[phone] [place] No Information Dec-2 4-201 9 Makler Luke. . [facility], [place], [place], [address], [place] tel:[phone] [place] No Information Dec-2 0-201 9 Makler Luke. . [facility], [place], [place], [address], [place] tel:[phone] [place] No Information Dec-1 6-201 9 Makler Luke. . [facility], [place], [place], [address], [place] tel:[phone] [place] No Information Dec-1 3-201 9 Makler Luke. . [facility], [place], [place], [address], [place] tel:[phone] [place] No Information Dec-0 4-201 9 Makler Luke. . [facility], [place], [place], [address], [place] tel:[phone] [place] No Information Dec-0 2-201 9 Makler Luke. . [facility], [place], [place], [address], [place] tel:[phone] [place] No Information Nov-2 2-201 9 Makler Luke. . [facility], [place], [place], [address], [place] tel:[phone] [place] No Information Nov-1 8-201 9 Makler Luke. . [facility], [place], [place], [address], [place] tel:[phone] [place] No Information 9 Makler Luke. . [facility], [place], [place], [address], [place] tel:[phone] [place] No Information 9 Makler Luke. . [facility], [place], [place], [address], [place] tel:[phone] [place] No Information 9 Makler Luke. . [facility], [place], [place], [address], [place] tel:[phone] [place] No Information 9 Makler Luke. . [facility], [place], [place], [address], [place] tel:[phone] [place] No Information 9 Makler Luke. . [facility], [place], [place], [address], [place] tel:[phone] [place] No Information 9 Makler Luke. . [facility], [place], [place], [address], [place] tel:[phone] [place] No Information 9 Makler Luke. . [facility], [place], [place], [address], [place] tel:[phone] [place] No Information 9 Makler Luke. . [facility], [place], [place], [address], [place] tel:[phone] [place] No Information 9 Makler Luke. . [facility], [place], [place], [address], [place] tel:[phone] [place] No Information 9 Makler Luke. . [facility] [place], [place], [place], [address], [place] tel:[phone] [place] No Information Teddy Bueno. . Family History Family Member Type Diagnosis Age At Onset No Information Payers Payer name Insurance type Covered alliance party ID Authoriza tiscot(s) Medicare [place] MB [id number] [facility] Medicare Supplement [id number] Social History Type Description Quantity Date Captured [...]
--- OUTSIDE RECORDS SUMMARY | 2021-11-27 10:09 | XMS_ITS | Continuity of Care Document ---
Author Organization [employer] [place] Address [address] [place] [address] [address] [place] [address] Phone Care Team Providers Care Veterinary Toxicologist Name Role Phone Darek PT, MYAT, Cory [...] Copied on Encounter [facility] [address] [address], [place], [place], [address], tel:[phone] [place] No Information Sergio-0 6-202 2 Klahn Cory. . [facility] [address], [address], tel:[phone] [place] No Information Sep-1 5- 2 Klahn Cory. . Referring Provider: [address], [place], [address]. tel:[phone] [place] [address] [address] [address], [place], [place], [address], tel:[phone] [place] No Information 2 Klahn Cory. . Referring Provider: [address], [place], [address]. tel:[phone] [place] [address], [address], [place] tel:[phone] [place] No Information Sep-0 6 2 Klahn Cory. . Referring Provider: [address], [place], [address]. tel:[phone] [place] [address], [address], [place] tel:[phone] [place] No Information Aug-3 0-202 2 Klahn Cory. . Referring Provider: [address], [place], [address]. tel:[phone] [place] [address] 2121 [facility], [place], [place], [address], [place] tel:[phone] [place] No Information Mar-2 8-202 2 Juliannen Cory. . Referring Provider: [address], [place], [address]. tel:[phone] [place], [place] [address] [address], [place], [place], [address], [place] tel:[phone] [place] No Information Mar-2 3-202 2 Klahn Cory. . Referring Provider: [address], [place], [address]. tel:[phone] [place], [place] [address] [address], [place], [place], [address], [place] tel:[phone] [place] No Information Mar-2 1-202 2 Modglin Eladio. . Referring Provider: [address], [place], [address]. tel:[phone] [place], [place] [address] [address], [place], [place], [address], [place] tel:[phone] [place] No Information Mar-1 6-202 2 Juliannen Cory. . Referring Provider: [address], [place], [address]. tel:[phone] [address] [place], [place] [address] [address], [place], [place], [address], [place] tel:[phone] [place] No Information Mar-2 7-202 0 Makler Luke. . [facility], [place], [place], [address], [place] tel:[phone] [place] No Information Mar-2 0-202 0 Makler Luke. . [facility], [place], [place], [address], [place] tel:[phone] [place] No Information Mar-1 1-202 0 Makler Luke. . [facility], [place], [place], [address], [place] tel:[phone] [place] No Information Mar-0 6-202 0 Makler Luke. . [facility], [place], [place], [address], [place] tel:[phone] [place] No Information - 0 Makler Luke. . [facility], [place], [place], [address], [place] tel:[phone] [place] No Information 0 Makler Luke. . [facility], [place], [address], [place] tel:[phone] [place] No Information 0 Makler Luke. . [facility], [place], [place], [address], [place] tel:[phone] [place] No Information 0 Makler Luke. . [facility], [place], [place], [address], [place] tel:[phone] [place] No Information 0 Makler Luke. . [facility], [place], [place], [address], [place] tel:[phone] [place] No Information - 0 Makler Luke. . [facility], [place], [place], [address], [place] tel:[phone] [place] No Information 0- 0 Makler Luke. . [facility], [place], [place], [address], [place] tel:[phone] [place] No Information - 0 Makler Luke. . [facility], [place], [place], [address], [place] tel:[phone] [place] No Information 2- 0 Makler Luke. . [facility], [place], [place], [address], [place] tel:[phone] [place] No Information 0-201 9 Makler Luke. . [facility], [place], [place], [address], [place] tel:[phone] [place] No Information Dec-2 6-201 9 Makler Luke. . [facility], [place], [place], [address], [place] tel:[phone] [place] No Information Dec-2 4-201 9 Makler Luke. . [facility], [place], [place], [address], [place] tel:[phone] [place] No Information Dec-2 0-201 9 Makler Luke. . [facility], [place], [place], [address], [place] tel:[phone] [place] No Information Dec-1 6-201 9 Makler Luke. . [facility], [place], [place], [address], [place] tel:[phone] [place] No Information Dec-1 3-201 9 Makler Luke. . [facility], [place], [place], [address], [place] tel:[phone] [place] No Information Dec-0 4-201 9 Makler Luke. . [facility], [place], [place], [address], [place] tel:[phone] [place] No Information Dec-0 2-201 9 Makler Luke. . [facility], [place], [place], [address], [place] tel:[phone] [place] No Information Nov-2 2-201 9 Makler Luke. . [facility], [place], [place], [address], [place] tel:[phone] [place] No Information Nov-1 8-201 9 Makler Luke. . [facility], [place], [place], [address], [place] tel:[phone] [place] No Information 9 Makler Luke. . [facility], [place], [place], [address], [place] tel:[phone] [place] No Information 9 Makler Luke. . [facility], [place], [place], [address], [place] tel:[phone] [place] No Information 9 Makler Luke. . [facility], [place], [place], [address], [place] tel:[phone] [place] No Information 9 Makler Luke. . [facility], [place], [place], [address], [place] tel:[phone] [place] No Information 9 Makler Luke. . [facility], [place], [place], [address], [place] tel:[phone] [place] No Information 9 Makler Luke. . [facility], [place], [place], [address], [place] tel:[phone] [place] No Information 9 Makler Luke. . [facility], [place], [place], [address], [place] tel:[phone] [place] No Information 9 Makler Luke. . [facility], [place], [place], [address], [place] tel:[phone] [place] No Information 9 Makler Luke. . [facility], [place], [place], [address], [place] tel:[phone] [place] No Information 9 Makler Luke. . [facility] [place], [place], [place], [address], [place] tel:[phone] [place] No Information Teddy Bueno. . Family History Family Member Type Diagnosis Age At Onset No Information Payers Payer name Insurance type Covered green party ID Authoriza tiscot(s) Medicare [place] MB [id number] [facility] Medicare Supplement [id number] Social History Type Description Quantity Date Captured [...]
--- OUTSIDE RECORDS SUMMARY | 2021-11-27 10:09 | XMS_ITS | Continuity of Care Document ---
Author Organization [email or web address] [place] Address [address] [place] [address] [address] [place] [address] Phone Care Team Providers Care Mobility Developer Name Role Phone Darek PT, MYAT, Cory [...] Diagnoses Date Provider Providers Copied on Encounter [facility] [address] [address], [place], [place], [address], tel:[phone] [place] No Information Sergio-0 6-202 2 Klahn Cory. . [facility] [address], [id number], tel:[phone] [place] No Information Sep-1 5- 2 Klahn Cory. . Referring Provider: [address], [place], [address]. tel:[phone] [place] [address] [address] [address], [place], [place], [address], tel:[phone] [place] No Information 2 Klahn Cory. . Referring Provider: [address], [place], [address]. tel:[phone] [place] [address], [id number], [place] tel:[phone] [place] No Information Sep-0 6 2 Klahn Cory. . Referring Provider: [address], [place], [address]. tel:[phone] [place] [address], [id number], [place] tel:[phone] [place] No Information Aug-3 0-202 2 Klahn Cory. . Referring Provider: [address], [place], [address]. tel:[phone] [place] [address] 2121 [facility], [place], [place], [address], [place] tel:[phone] [place] No Information Mar-2 8-202 2 Juliannen Cory. . Referring Provider: [address], [place], [address]. tel:[phone] [place], [place] [address] [address], [place], [place], [address], [place] tel:[phone] [place] No Information Mar-2 3-202 2 Klahn Cory. . Referring Provider: [address], [place], [address]. tel:[phone] [place], [place] [address] [address], [place], [place], [address], [place] tel:[phone] [place] No Information Mar-2 1-202 2 Modglin Eladio. . Referring Provider: [address], [place], [address]. tel:[phone] [place], [place] [address] [address], [place], [place], [address], [place] tel:[phone] [place] No Information Mar-1 6-202 2 Juliannen Cory. . Referring Provider: [address], [place], [address]. tel:[phone] [place], [place] [address] [address], [place], [place], [address], [place] tel:[phone] [place] No Information Mar-2 7-202 0 Makler Luke. . [facility], [place], [place], [address], [place] tel:[phone] [place] No Information Mar-2 0-202 0 Makler Luke. . [facility], [place], [place], [address], [place] tel:[phone] [place] No Information Mar-1 1-202 0 Makler Luke. . [facility], [place], [place], [address], [place] tel:[phone] [place] No Information Mar-0 6-202 0 Makler Luke. . [facility], [place], [place], [address], [place] tel:[phone] [place] No Information - 0 Makler Luke. . [facility], [place], [place], [address], [place] tel:[phone] [place] No Information 0 Makler Luke. . [facility], [place], [place], [address], [place] tel:[phone] [place] No Information 0 Makler Luke. . [facility], [place], [place], [address], [place] tel:[phone] [place] No Information 0 Makler Luke. . [facility], [place], [place], [address], [place] tel:[phone] [place] No Information 0 Makler Luke. . [facility], [place], [place], [address], [place] tel:[phone] [place] No Information - 0 Makler Luke. . [facility], [place], [place], [address], [place] tel:[phone] [place] No Information 0- 0 Makler Luke. . [facility], [place], [place], [address], [place] tel:[phone] [place] No Information - 0 Makler Luke. . [facility], [place], [place], [address], [place] tel:[phone] [place] No Information 2- 0 Makler Luke. . [facility], [place], [place], [address], [place] tel:[phone] [place] No Information 0-201 9 Makler Luke. . [facility], [place], [place], [address], [place] tel:[phone] [place] No Information Dec-2 6-201 9 Makler Luke. . [facility], [place], [place], [address], [place] tel:[phone] [place] No Information Dec-2 4-201 9 Makler Luke. . [facility], [place], [place], [address], [place] tel:[phone] [place] No Information Dec-2 0-201 9 Makler Luke. . [facility], [place], [place], [address], [place] tel:[phone] [place] No Information Dec-1 6-201 9 Makler Luke. . [facility], [place], [place], [address], [place] tel:[phone] [place] No Information Dec-1 3-201 9 Makler Luke. . [facility], [place], [place], [address], [place] tel:[phone] [place] No Information Dec-0 4-201 9 Makler Luke. . [facility], [place], [place], [address], [place] tel:[phone] [place] No Information Dec-0 2-201 9 Makler Luke. . [facility], [place], [place], [address], [place] tel:[phone] [place] No Information Nov-2 2-201 9 Makler Luke. . [facility], [place], [place], [address], [place] tel:[phone] [place] No Information Nov-1 8-201 9 Makler Luke. . [facility], [place], [place], [address], [place] tel:[phone] [place] No Information 9 Makler Luke. . [facility], [place], [place], [address], [place] tel:[phone] [place] No Information 9 Makler Luke. . [facility], [place], [place], [address], [place] tel:[phone] [place] No Information 9 Makler Luke. . [facility], [place], [place], [address], [place] tel:[phone] [place] No Information 9 Makler Luke. . [facility], [place], [place], [address], [place] tel:[phone] [place] No Information 9 Makler Luke. . [facility], [place], [place], [address], [place] tel:[phone] [place] No Information 9 Makler Luke. . [facility], [place], [place], [address], [place] tel:[phone] [place] No Information 9 Makler Luke. . [facility], [place], [place], [address], [place] tel:[phone] [place] No Information 9 Makler Luke. . [facility], [place], [place], [address], [place] tel:[phone] [place] No Information 9 Makler Luke. . [facility], [place], [place], [address], [place] tel:[phone] [place] No Information 9 Makler Luke. . [facility], [place], [place], [address], [place] tel:[phone] [place] No Information Teddy Bueno. . Family History Family Member Type Diagnosis Age At Onset No Information Payers Payer name Insurance type Covered alliance party ID Authoriza tiscot(s) Medicare [place] MB [id number] [facility] Medicare Supplement [id number] Social History Type Description Quantity Date Captured [...]
--- OUTSIDE RECORDS SUMMARY | 2021-11-27 10:09 | XMS_ITS | Continuity of Care Document ---
Author Organization [employer] [place] Address [address] [place] [address] [address] [place] [address] Phone Care Team Providers Care Income Tax Adjuster Name Role Phone Darek PT, MYAT, Cory [...] Diagnoses Date Provider Providers Copied on Encounter [facility] [address] [address], [place], [place], [address], tel:[phone] [place] No Information Sergio-0 6-202 2 Klahn Cory. . [facility] [address], [id number], tel:[phone] [place] No Information Sep-1 5- 2 Klahn Cory. . Referring Provider: [address], [place], [address]. tel:[phone] [place] [address] [address] [address], [place], [place], [address], tel:[phone] [place] No Information 2 Klahn Cory. . Referring Provider: [address], [place], [address]. tel:[phone] [place] [address], [address], [place] tel:[phone] [place] No Information Sep-0 6 2 Klahn Cory. . Referring Provider: [address], [place], [address]. tel:[phone] [place] [address], [address], [place] tel:[phone] [place] No Information Aug-3 0-202 2 Klahn Cory. . Referring Provider: [address], [place], [address]. tel:[phone] [place] [address] 2121 [facility], [place], [place], [address], [place] tel:[phone] [place] No Information Mar-2 8-202 2 Juliannen Cory. . Referring Provider: [address], [place], [address]. tel:[phone] [place], [place] [address] [address], [place], [place], [address], [place] tel:[phone] [place] No Information Mar-2 3-202 2 Klahn Cory. . Referring Provider: [address], [place], [address]. tel:[phone] [place], [place] [address] [address], [place], [place], [address], [place] tel:[phone] [place] No Information Mar-2 1-202 2 Modgl[place] Eladio. . Referring Provider: [address], [place], [address]. tel:[phone] [place], [place] [address] [address], [place], [place], [address], [place] tel:[phone] [place] No Information Mar-1 6-202 2 Juliannen Cory. . Referring Provider: [address], [place], [address]. tel:[phone] [place], [place] [address] [address], [place], [place], [address], [place] tel:[phone] [place] No Information Mar-2 7-202 0 Makler Luke. . [facility], [place], [place], [address], [place] tel:[phone] [place] No Information Mar-2 0-202 0 Makler Luke. . [facility], [place], [place], [address], [place] tel:[phone] [place] No Information Mar-1 1-202 0 Makler Luke. . [facility], [place], [place], [address], [place] tel:[phone] [place] No Information Mar-0 6-202 0 Makler Luke. . [facility], [place], [place], [address], [place] tel:[phone] [place] No Information - 0 Makler Luke. . [facility], [place], [place], [address], [place] tel:[phone] [place] No Information 0 Makler Luke. . [facility], [place], [place], [address], [place] tel:[phone] [place] No Information 0 Makler Luke. . [facility], [place], [place], [address], [place] tel:[phone] [place] No Information 0 Makler Luke. . [facility], [place], [address], [place] tel:[phone] [place] No Information 0 Makler Luke. . [facility], [place], [place], [address], [place] tel:[phone] [place] No Information - 0 Makler Luke. . [facility], [place], [place], [address], [place] tel:[phone] [place] No Information 0- 0 Makler Luke. . [facility], [place], [place], [address], [place] tel:[phone] [place] No Information - 0 Makler Luke. . [facility], [place], [place], [address], [place] tel:[phone] [place] No Information 2- 0 Makler Luke. . [facility], [place], [place], [address], [place] tel:[phone] [place] No Information 0-201 9 Makler Luke. . [facility], [place], [address], [place] tel:[phone] [place] No Information Dec-2 6-201 9 Makler Luke. . [facility], [place], [address], [place] tel:[phone] [place] No Information Dec-2 4-201 9 Makler Luke. . [facility], [place], [place], [address], [place] tel:[phone] [place] No Information Dec-2 0-201 9 Makler Luke. . [facility], [place], [place], [address], [place] tel:[phone] [place] No Information Dec-1 6-201 9 Makler Luke. . [facility], [place], [place], [address], [place] tel:[phone] [place] No Information Dec-1 3-201 9 Makler Luke. . [facility], [place], [address], [place] tel:[phone] [place] No Information Dec-0 4-201 9 Makler Luke. . [facility], [place], [place], [address], [place] tel:[phone] [place] No Information Dec-0 2-201 9 Makler Luke. . [facility], [place], [place], [address], [place] tel:[phone] [place] No Information Nov-2 2-201 9 Makler Luke. . [facility], [place], [place], [address], [place] tel:[phone] [place] No Information Nov-1 8-201 9 Makler Luke. . [facility], [place], [place], [address], [place] tel:[phone] [place] No Information 9 Makler Luke. . [facility], [place], [place], [address], [place] tel:[phone] [place] No Information 9 Makler Luke. . [facility], [place], [place], [address], [place] tel:[phone] [place] No Information 9 Makler Luke. . [facility], [place], [place], [address], [place] tel:[phone] [place] No Information 9 Makler Luke. . [facility], [place], [place], [address], [place] tel:[phone] [place] No Information 9 Makler Luke. . [facility], [place], [place], [address], [place] tel:[phone] [place] No Information 9 Makler Luke. . [facility], [place], [place], [address], [place] tel:[phone] [place] No Information 9 Makler Luke. . [facility], [place], [place], [address], [place] tel:[phone] [place] No Information 9 Makler Luke. . [facility], [place], [place], [address], [place] tel:[phone] [place] No Information 9 Makler Luke. . [facility], [place], [place], [address], [place] tel:[phone] [place] No Information 9 Makler Luke. . [facility] [place], [place], [place], [address], [place] tel:[phone] [place] No Information Teddy Bueno. . Family History Family Member Type Diagnosis Age At Onset No Information Payers Payer name Insurance type Covered green party ID Authoriza tiscot(s) Medicare [place] MB [id number] [facility] Medicare Supplement [id number] Social History Type Description Quantity Date Captured [...]
--- OUTSIDE RECORDS SUMMARY | 2021-11-27 10:09 | XMS_ITS | Continuity of Care Document ---
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 . [facility] [address], [id number], tel:[phone] [place] No Information Sep-1 5- 2 Klahn Cory. . Referring Provider: [address], [place], [address]. tel:[phone] [place] [address] [address] [address], [place], [place], [address], tel:[phone] [place] No Information 2 Klahn Cory. . Referring Provider: [address], [place], [address]. tel:[phone] [place] [address], [address], [place] tel:[phone] [place] No Information Sep-0 6 2 Klahn Cory. . Referring Provider: [address], [place], [address]. tel:[phone] [place] [address], [address], [place] tel:[phone] [place] No Information Aug-3 0-202 2 Klahn Cory. . Referring Provider: [address], [place], [address]. tel:[phone] [place] [address] 2121 [facility], [place], [place], [address], [place] tel:[phone] [place] No Information Mar-2 8-202 2 Juliannen Cory. . Referring Provider: [address], [place], [address]. tel:[phone] [place], [place] [address], [place], [place], [address], [place] tel:[phone] [place] No Information Mar-2 3-202 2 Klahn Cory. . Referring Provider: [address], [place], [address]. tel:[phone] [place], [place] [address] [address], [place], [place], [address], [place] tel:[phone] [place] No Information Mar-2 1-202 2 Modglin Eladio. . Referring Provider: [address], [place], [address]. tel:[phone] [place], [place] [address] [address], [place], [place], [address], [place] tel:[phone] [place] No Information Mar-1 6-202 2 Juliannen Cory. . Referring Provider: [address], [place], [address]. tel:[phone] [place], [place] [address] [address], [place], [place], [address], [place] tel:[phone] [place] No Information Mar-2 7-202 0 Makler Luke. . [facility], [place], [place], [address], [place] tel:[phone] [place] No Information Mar-2 0-202 0 Makler Luke. . [facility], [place], [place], [address], [place] tel:[phone] [place] No Information Mar-1 1-202 0 Makler Luke. . [facility], [place], [place], [address], [place] tel:[phone] [place] No Information Mar-0 6-202 0 Makler Luke. . [facility], [place], [place], [address], [place] tel:[phone] [place] No Information - 0 Makler Luke. . [facility], [place], [place], [address], [place] tel:[phone] [place] No Information 0 Makler Luke. . [facility], [place], [place], [address], [place] tel:[phone] [place] No Information 0 Makler Luke. . [facility], [place], [place], [address], [place] tel:[phone] [place] No Information 0 Makler Luke. . [facility], [place], [place], [address], [place] tel:[phone] [place] No Information 0 Makler Luke. . [facility], [place], [place], [address], [place] tel:[phone] [place] No Information - 0 Makler Luke. . [facility], [place], [place], [address], [place] tel:[phone] [place] No Information 0- 0 Makler Luke. . [facility], [place], [place], [address], [place] tel:[phone] [place] No Information - 0 Makler Luke. . [facility], [place], [place], [address], [place] tel:[phone] [place] No Information 2- 0 Makler Luke. . [facility], [place], [place], [address], [place] tel:[phone] [place] No Information 0-201 9 Makler Luke. . [facility], [place], [place], [address], [place] tel:[phone] [place] No Information Dec-2 6-201 9 Makler Luke. . [facility], [place], [place], [address], [place] tel:[phone] [place] No Information Dec-2 4-201 9 Makler Luke. . [facility], [place], [place], [address], [place] tel:[phone] [place] No Information Dec-2 0-201 9 Makler Luke. . [facility], [place], [place], [address], [place] tel:[phone] [place] No Information Dec-1 6-201 9 Makler Luke. . [facility], [place], [place], [address], [place] tel:[phone] [place] No Information Dec-1 3-201 9 Makler Luke. . [facility], [place], [place], [address], [place] tel:[phone] [place] No Information Dec-0 4-201 9 Makler Luke. . [facility], [place], [place], [address], [place] tel:[phone] [place] No Information Dec-0 2-201 9 Makler Luke. . [facility], [place], [place], [address], [place] tel:[phone] [place] No Information Nov-2 2-201 9 Makler Luke. . [facility], [place], [place], [address], [place] tel:[phone] [place] No Information Nov-1 8-201 9 Makler Luke. . [facility], [place], [place], [address], [place] tel:[phone] [place] No Information 9 Makler Luke. . [facility], [place], [place], [address], [place] tel:[phone] [place] No Information 9 Makler Luke. . [facility], [place], [place], [address], [place] tel:[phone] [place] No Information 9 Makler Luke. . [facility], [place], [place], [address], [place] tel:[phone] [place] No Information 9 Makler Luke. . [facility], [place], [place], [address], [place] tel:[phone] [place] No Information 9 Makler Luke. . [facility], [place], [place], [address], [place] tel:[phone] [place] No Information 9 Makler Luke. . [facility], [place], [place], [address], [place] tel:[phone] [place] No Information 9 Makler Luke. . [facility], [place], [place], [address], [place] tel:[phone] [place] No Information 9 Makler Luke. . [facility], [place], [place], [address], [place] tel:[phone] [place] No Information 9 Makler Luke. . [facility], [place], [place], [address], [place] tel:[phone] [place] No Information 9 Makler Luke. . [facility] [place], [place], [place], [address], [place] tel:[phone] [place] No Information Teddy Bueno. . Family History Family Member Type Diagnosis Age At Onset No Information Payers Payer name Insurance type Covered green party ID Authoriza tiscot(s) Medicare [place] MB [id number] [facility] Medicare Supplement [id number] Social History Type Description Quantity Date Captured [...]
--- OUTSIDE RECORDS SUMMARY | 2021-11-27 10:09 | XMS_ITS | Continuity of Care Document ---
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 . [facility] [address], [id number], tel:[phone] [place] No Information Sep-1 5- 2 Klahn Cory. . Referring Provider: [address], [place], [address]. tel:[phone] [place] [address] [address] [address], [place], [place], [address], tel:[phone] [place] No Information 2 Klahn Cory. . Referring Provider: [address], [place], [address]. tel:[phone] [place] [address], [id number], [place] tel:[phone] [place] No Information Sep-0 6 2 Klahn Cory. . Referring Provider: [address], [place], [address]. tel:[phone] [place] [address], [id number], [place] tel:[phone] [place] No Information Aug-3 0-202 2 Klahn Cory. . Referring Provider: [address], [place], [address]. tel:[phone] [place] [address] 2121 [facility], [place], [place], [address], [place] tel:[phone] [place] No Information Mar-2 8-202 2 Juliannen Cory. . Referring Provider: [address], [place], [address]. tel:[phone] [place], [place] [address] [address], [place], [place], [address], [place] tel:[phone] [place] No Information Mar-2 3-202 2 Klahn Cory. . Referring Provider: [address], [place], [address]. tel:[phone] [place], [place] [address] [address], [place], [place], [address], [place] tel:[phone] [place] No Information Mar-2 1-202 2 Modglin Eladio. . Referring Provider: [address], [place], [address]. tel:[phone] [place], [place] [address] [address], [place], [place], [address], [place] tel:[phone] [place] No Information Mar-1 6-202 2 Juliannen Cory. . Referring Provider: [address], [place], [address]. tel:[phone] [place], [place] [address] [address], [place], [place], [address], [place] tel:[phone] [place] No Information Mar-2 7-202 0 Makler Luke. . [facility], [place], [place], [address], [place] tel:[phone] [place] No Information Mar-2 0-202 0 Makler Luke. . [facility], [place], [place], [address], [place] tel:[phone] [place] No Information Mar-1 1-202 0 Makler Luke. . [facility], [place], [place], [address], [place] tel:[phone] [place] No Information Mar-0 6-202 0 Makler Luke. . [facility], [place], [place], [address], [place] tel:[phone] [place] No Information - 0 Makler Luke. . [facility], [place], [place], [address], [place] tel:[phone] [place] No Information 0 Makler Luke. . [facility], [place], [place], [address], [place] tel:[phone] [place] No Information 0 Makler Luke. . [facility], [place], [place], [address], [place] tel:[phone] [place] No Information 0 Makler Luke. . [facility], [place], [place], [address], [place] tel:[phone] [place] No Information 0 Makler Luke. . [facility], [place], [place], [address], [place] tel:[phone] [place] No Information - 0 Makler Luke. . [facility], [place], [place], [address], [place] tel:[phone] [place] No Information 0- 0 Makler Luke. . [facility], [place], [place], [address], [place] tel:[phone] [place] No Information - 0 Makler Luke. . [facility], [place], [place], [address], [place] tel:[phone] [place] No Information 2- 0 Makler Luke. . [facility], [place], [place], [address], [place] tel:[phone] [place] No Information 0-201 9 Makler Luke. . [facility], [place], [place], [address], [place] tel:[phone] [place] No Information Dec-2 6-201 9 Makler Luke. . [facility], [place], [place], [address], [place] tel:[phone] [place] No Information Dec-2 4-201 9 Makler Luke. . [facility], [place], [place], [address], [place] tel:[phone] [place] No Information Dec-2 0-201 9 Makler Luke. . [facility], [place], [place], [address], [place] tel:[phone] [place] No Information Dec-1 6-201 9 Makler Luke. . [facility], [place], [place], [address], [place] tel:[phone] [place] No Information Dec-1 3-201 9 Makler Luke. . [facility], [place], [place], [address], [place] tel:[phone] [place] No Information Dec-0 4-201 9 Makler Luke. . [facility], [place], [place], [address], [place] tel:[phone] [place] No Information Dec-0 2-201 9 Makler Luke. . [facility], [place], [place], [address], [place] tel:[phone] [place] No Information Nov-2 2-201 9 Makler Luke. . [facility], [place], [place], [address], [place] tel:[phone] [place] No Information Nov-1 8-201 9 Makler Luke. . [facility], [place], [place], [address], [place] tel:[phone] [place] No Information 9 Makler Luke. . [facility], [place], [place], [address], [place] tel:[phone] [place] No Information 9 Makler Luke. . [facility], [place], [place], [address], [place] tel:[phone] [place] No Information 9 Makler Luke. . [facility], [place], [place], [address], [place] tel:[phone] [place] No Information 9 Makler Luke. . [facility], [place], [place], [address], [place] tel:[phone] [place] No Information 9 Makler Luke. . [facility], [place], [place], [address], [place] tel:[phone] [place] No Information 9 Makler Luke. . [facility], [place], [place], [address], [place] tel:[phone] [place] No Information 9 Makler Luke. . [facility], [place], [place], [address], [place] tel:[phone] [place] No Information 9 Makler Luke. . [facility], [place], [place], [address], [place] tel:[phone] [place] No Information 9 Makler Luke. . [facility], [place], [place], [address], [place] tel:[phone] [place] No Information 9 Makler Luke. . [facility] [place], [place], [place], [address], [place] tel:[phone] [place] No Information Teddy Bueno. . Family History Family Member Type Diagnosis Age At Onset No Information Payers Payer name Insurance type Covered constitution party ID Authoriza tiscot(s) Medicare [place] MB [id number] [facility] Medicare Supplement [id number] Social History Type Description Quantity Date Captured [...]
--- OUTSIDE RECORDS SUMMARY | 2021-11-27 10:09 | XMS_ITS | Continuity of Care Document ---
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 . [facility] [address], [id number], tel:[phone] [place] No Information Sep-1 5- 2 Klahn Cory. . Referring Provider: [address], [place], [address]. tel:[phone] [place] [address] [address] [address], [place], [place], [address], tel:[phone] [place] No Information 2 Klahn Cory. . Referring Provider: [address], [place], [address]. tel:[phone] [place] [address], [address], [place] tel:[phone] [place] No Information Sep-0 6 2 Klahn Cory. . Referring Provider: [address], [place], [address]. tel:[phone] [place] [address], [address], [place] tel:[phone] [place] No Information Aug-3 0-202 2 Klahn Cory. . Referring Provider: [address], [place], [address]. tel:[phone] [place] [address] 2121 [facility], [place], [place], [address], [place] tel:[phone] [place] No Information Mar-2 8-202 2 Juliannen Cory. . Referring Provider: [address], [place], [address]. tel:[phone] [place], [place] [address] [address], [place], [place], [address], [place] tel:[phone] [place] No Information Mar-2 3-202 2 Klahn Cory. . Referring Provider: [address], [place], [address]. tel:[phone] [place], [place] [address] [address], [place], [place], [address], [place] tel:[phone] [place] No Information Mar-2 1-202 2 Modglin Eladio. . Referring Provider: [address], [place], [address]. tel:[phone] [place], [place] [address] [address], [place], [place], [address], [place] tel:[phone] [place] No Information Mar-1 6-202 2 Juliannen Cory. . Referring Provider: [address], [place], [address]. tel:[phone] [place], [place] [address] [address], [place], [place], [address], [place] tel:[phone] [place] No Information Mar-2 7-202 0 Makler Luke. . [facility], [place], [place], [address], [place] tel:[phone] [place] No Information Mar-2 0-202 0 Makler Luke. . [facility], [place], [place], [address], [place] tel:[phone] [place] No Information Mar-1 1-202 0 Makler Luke. . [facility], [place], [place], [address], [place] tel:[phone] [place] No Information Mar-0 6-202 0 Makler Luke. . [facility], [place], [place], [address], [place] tel:[phone] [place] No Information - 0 Makler Luke. . [facility], [place], [place], [address], [place] tel:[phone] [place] No Information 0 Makler Luke. . [facility], [place], [place], [address], [place] tel:[phone] [place] No Information 0 Makler Luke. . [facility], [place], [place], [address], [place] tel:[phone] [place] No Information 0 Makler Luke. . [facility], [place], [place], [address], [place] tel:[phone] [place] No Information 0 Makler Luke. . [facility], [place], [place], [address], [place] tel:[phone] [place] No Information - 0 Makler Luke. . [facility], [place], [place], [address], [place] tel:[phone] [place] No Information 0- 0 Makler Luke. . [facility], [place], [place], [address], [place] tel:[phone] [place] No Information - 0 Makler Luke. . [facility], [place], [place], [address], [place] tel:[phone] [place] No Information 2- 0 Makler Luke. . [facility], [place], [place], [address], [place] tel:[phone] [place] No Information 0-201 9 Makler Luke. . [facility], [place], [place], [address], [place] tel:[phone] [place] No Information Dec-2 6-201 9 Makler Luke. . [facility], [place], [place], [address], [place] tel:[phone] [place] No Information Dec-2 4-201 9 Makler Luke. . [facility], [place], [place], [address], [place] tel:[phone] [place] No Information Dec-2 0-201 9 Makler Luke. . [facility], [place], [place], [address], [place] tel:[phone] [place] No Information Dec-1 6-201 9 Makler Luke. . [facility], [place], [place], [address], [place] tel:[phone] [place] No Information Dec-1 3-201 9 Makler Luke. . [facility], [place], [place], [address], [place] tel:[phone] [place] No Information Dec-0 4-201 9 Makler Luke. . [facility], [place], [place], [address], [place] tel:[phone] [place] No Information Dec-0 2-201 9 Makler Luke. . [facility], [place], [place], [address], [place] tel:[phone] [place] No Information Nov-2 2-201 9 Makler Luke. . [facility], [place], [place], [address], [place] tel:[phone] [place] No Information Nov-1 8-201 9 Makler Luke. . [facility], [place], [place], [address], [place] tel:[phone] [place] No Information 9 Makler Luke. . [facility], [place], [place], [address], [place] tel:[phone] [place] No Information 9 Makler Luke. . [facility], [place], [place], [address], [place] tel:[phone] [place] No Information 9 Makler Luke. . [facility], [place], [place], [address], [place] tel:[phone] [place] No Information 9 Makler Luke. . [facility], [place], [place], [address], [place] tel:[phone] [place] No Information 9 Makler Luke. . [facility], [place], [place], [address], [place] tel:[phone] [place] No Information 9 Makler Luke. . [facility], [place], [place], [address], [place] tel:[phone] [place] No Information 9 Makler Luke. . [facility], [place], [place], [address], [place] tel:[phone] [place] No Information 9 Makler Luke. . [facility], [place], [place], [address], [place] tel:[phone] [place] No Information 9 Makler Luke. . [facility], [place], [place], [address], [place] tel:[phone] [place] No Information 9 Makler Luke. . [facility] [place], [place], [place], [address], [place] tel:[phone] [place] No Information Teddy Bueno. . Family History Family Member Type Diagnosis Age At Onset No Information Payers Payer name Insurance type Covered constitution party ID Authoriza tiscot(s) Medicare [place] MB [id number] [facility] Medicare Supplement [id number] Social History Type Description Quantity Date Captured [...]
--- OUTSIDE RECORDS SUMMARY | 2021-11-27 10:09 | XMS_ITS | Continuity of Care Document ---
Author Organization [employer] [place] Address [address] [place] [address] [address] [place] [address] Phone Care Team Providers Care Addiction Social Worker Name Role Phone Darek PT, MYAT, Cory [...] Diagnoses Date Provider Providers Copied on Encounter [facility] [address] [address], [place], [place], [address], tel:[phone] [place] No Information Sergio-0 6-202 2 Klahn Cory. . [facility] [address], [id number], tel:[phone] [place] No Information Sep-1 5- 2 Klahn Cory. . Referring Provider: [address], [place], [address]. tel:[phone] [place] [address] [address] [address], [place], [place], [address], tel:[phone] [place] No Information 2 Klahn Cory. . Referring Provider: [address], [place], [address]. tel:[phone] [place] [address], [address], [place] tel:[phone] [place] No Information Sep-0 6 2 Klahn Cory. . Referring Provider: [address], [place], [address]. tel:[phone] [place] [address], [address], [place] tel:[phone] [place] No Information Aug-3 0-202 2 Klahn Cory. . Referring Provider: [address], [place], [address]. tel:[phone] [place] [address] 2121 [facility], [place], [place], [address], [place] tel:[phone] [place] No Information Mar-2 8-202 2 Juliannen Cory. . Referring Provider: [address], [place], [address]. tel:[phone] [place], [place] [address] [address], [place], [place], [address], [place] tel:[phone] [place] No Information Mar-2 3-202 2 Klahn Cory. . Referring Provider: [address], [place], [address]. tel:[phone] [place], [place] [address] [address], [place], [place], [address], [place] tel:[phone] [place] No Information Mar-2 1-202 2 Modglin Eladio. . Referring Provider: [address], [place], [address]. tel:[phone] [place], [place] [address] [address], [place], [place], [address], [place] tel:[phone] [place] No Information Mar-1 6-202 2 Juliannen Cory. . Referring Provider: [address], [place], [address]. tel:[phone] [place], [place] [address] [address], [place], [place], [address], [place] tel:[phone] [place] No Information Mar-2 7-202 0 Makler Luke. . [facility], [place], [place], [address], [place] tel:[phone] [place] No Information Mar-2 0-202 0 Makler Luke. . [facility], [place], [place], [address], [place] tel:[phone] [place] No Information Mar-1 1-202 0 Makler Luke. . [facility], [place], [place], [address], [place] tel:[phone] [place] No Information Mar-0 6-202 0 Makler Luke. . [facility], [place], [place], [address], [place] tel:[phone] [place] No Information - 0 Makler Luke. . [facility], [place], [place], [address], [place] tel:[phone] [place] No Information 0 Makler Luke. . [facility], [place], [place], [address], [place] tel:[phone] [place] No Information 0 Makler Luke. . [facility], [place], [place], [address], [place] tel:[phone] [place] No Information 0 Makler Luke. . [facility], [place], [place], [address], [place] tel:[phone] [place] No Information 0 Makler Luke. . [facility], [place], [place], [address], [place] tel:[phone] [place] No Information - 0 Makler Luke. . [facility], [place], [place], [address], [place] tel:[phone] [place] No Information 0- 0 Makler Luke. . [facility], [place], [place], [address], [place] tel:[phone] [place] No Information - 0 Makler Luke. . [facility], [place], [place], [address], [place] tel:[phone] [place] No Information 2- 0 Makler Luke. . [facility], [place], [place], [address], [place] tel:[phone] [place] No Information 0-201 9 Makler Luke. . [facility], [place], [place], [address], [place] tel:[phone] [place] No Information Dec-2 6-201 9 Makler Luke. . [facility], [place], [place], [address], [place] tel:[phone] [place] No Information Dec-2 4-201 9 Makler Luke. . [facility], [place], [place], [address], [place] tel:[phone] [place] No Information Dec-2 0-201 9 Makler Luke. . [facility], [place], [place], [address], [place] tel:[phone] [place] No Information Dec-1 6-201 9 Makler Luke. . [facility], [place], [place], [address], [place] tel:[phone] [place] No Information Dec-1 3-201 9 Makler Luke. . [facility], [place], [place], [address], [place] tel:[phone] [place] No Information Dec-0 4-201 9 Makler Luke. . [facility], [place], [place], [address], [place] tel:[phone] [place] No Information Dec-0 2-201 9 Makler Luke. . [facility], [place], [place], [address], [place] tel:[phone] [place] No Information Nov-2 2-201 9 Makler Luke. . [facility], [place], [place], [address], [place] tel:[phone] [place] No Information Nov-1 8-201 9 Makler Luke. . [facility], [place], [place], [address], [place] tel:[phone] [place] No Information 9 Makler Luke. . [facility], [place], [place], [address], [place] tel:[phone] [place] No Information 9 Makler Luke. . [facility], [place], [place], [address], [place] tel:[phone] [place] No Information 9 Makler Luke. . [facility], [place], [place], [address], [place] tel:[phone] [place] No Information 9 Makler Luke. . [facility], [place], [place], [address], [place] tel:[phone] [place] No Information 9 Makler Luke. . [facility], [place], [place], [address], [place] tel:[phone] [place] No Information 9 Makler Luke. . [facility], [place], [place], [address], [place] tel:[phone] [place] No Information 9 Makler Luke. . [facility], [place], [place], [address], [place] tel:[phone] [place] No Information 9 Makler Luke. . [facility], [place], [place], [address], [place] tel:[phone] [place] No Information 9 Makler Luke. . [facility], [place], [place], [address], [place] tel:[phone] [place] No Information 9 Makler Luke. . [facility] [place], [place], [place], [address], [place] tel:[phone] [place] No Information Teddy Bueno. . Family History Family Member Type Diagnosis Age At Onset No Information Payers Payer name Insurance type Covered republican ID Authoriza tiscot(s) Medicare [place] MB [id number] [facility] Medicare Supplement [id number] Social History Type Description Quantity Date Captured [...]
--- OUTSIDE RECORDS SUMMARY | 2021-11-27 10:09 | XMS_ITS | Continuity of Care Document ---
Author Organization [employer] [facility] Address [address] [place] [address] [address] [place] [address] Phone Care Team Providers Care Funeral Attendant Name Role Phone Darek PT, MYAT, Cory [...] Diagnoses Date Provider Providers Copied on Encounter [facility] [address] [address], [place], [place], [id number], tel:[phone] [place] No Information Sergio-0 6-202 2 Klahn Cory. . [facility] [address], [id number], tel:[phone] [place] No Information Sep-1 5- 2 Klahn Cory. . Referring Provider: [address], [place], [address]. tel:[phone] [place] [address] [address] [address], [place], [place], [id number], tel:[phone] [place] No Information 2 Klahn Cory. . Referring Provider: [address], [place], [address]. tel:[phone] [place] [address], [id number], [place] tel:[phone] [place] No Information Sep-0 6 2 Klahn Cory. . Referring Provider: [address], [place], [address]. tel:[phone] [place] [address], [id number], [place] tel:[phone] [place] No Information Aug-3 0-202 2 Klahn Cory. . Referring Provider: [address], [place], [address]. tel:[phone] [place] [address] 2121 [facility], [place], [place], [id number], [place] tel:[phone] [place] No Information Mar-2 8-202 2 Juliannen Cory. . Referring Provider: [address], [place], [address]. tel:[phone] [place], [place] [address] [address], [place], [place], [address], [place] tel:[phone] [place] No Information Mar-2 3-202 2 Klahn Cory. . Referring Provider: [address], [place], [address]. tel:[phone] [place], [place] [address] [address], [place], [place], [address], [place] tel:[phone] [place] No Information Mar-2 1-202 2 Modgl[place] Eladio. . Referring Provider: [address], [place], [address]. tel:[phone] [place], [place] [address] [address], [place], [place], [address], [place] tel:[phone] [place] No Information Mar-1 6-202 2 Juliannen Cory. . Referring Provider: [address], [place], [address]. tel:[phone] [place], [place] [address] [address], [place], [place], [address], [place] tel:[phone] [place] No Information Mar-2 7-202 0 Makler Luke. . [facility], [place], [place], [address], [place] tel:[phone] [place] No Information Mar-2 0-202 0 Makler Luke. . [facility], [place], [place], [address], [place] tel:[phone] [place] No Information Mar-1 1-202 0 Makler Luke. . [facility], [place], [place], [address], [place] tel:[phone] [place] No Information Mar-0 6-202 0 Makler Luke. . [facility], [place], [place], [address], [place] tel:[phone] [place] No Information - 0 Makler Luke. . [facility], [place], [place], [address], [place] tel:[phone] [place] No Information 0 Makler Luke. . [facility], [place], [place], [address], [place] tel:[phone] [place] No Information 0 Makler Luke. . [facility], [place], [address], [place] tel:[phone] [place] No Information 0 Makler Luke. . [facility], [place], [place], [address], [place] tel:[phone] [place] No Information 0 Makler Luke. . [facility], [place], [place], [address], [place] tel:[phone] [place] No Information - 0 Makler Luke. . [facility], [place], [place], [address], [place] tel:[phone] [place] No Information 0- 0 Makler Luke. . [facility], [place], [place], [address], [place] tel:[phone] [place] No Information - 0 Makler Luke. . [facility], [place], [place], [address], [place] tel:[phone] [place] No Information 2- 0 Makler Luke. . [facility], [place], [place], [address], [place] tel:[phone] [place] No Information 0-201 9 Makler Luke. . [facility], [place], [address], [place] tel:[phone] [place] No Information Dec-2 6-201 9 Makler Luke. . [facility], [place], [place], [address], [place] tel:[phone] [place] No Information Dec-2 4-201 9 Makler Luke. . [facility], [place], [address], [place] tel:[phone] [place] No Information Dec-2 0-201 9 Makler Luke. . [facility], [place], [place], [address], [place] tel:[phone] [place] No Information Dec-1 6-201 9 Makler Luke. . [facility], [place], [place], [address], [place] tel:[phone] [place] No Information Dec-1 3-201 9 Makler Luke. . [facility], [place], [place], [address], [place] tel:[phone] [place] No Information Dec-0 4-201 9 Makler Luke. . [facility], [place], [place], [address], [place] tel:[phone] [place] No Information Dec-0 2-201 9 Makler Luke. . [facility], [place], [address], [place] tel:[phone] [place] No Information Nov-2 2-201 9 Makler Luke. . [facility], [place], [place], [address], [place] tel:[phone] [place] No Information Nov-1 8-201 9 Makler Luke. . [facility], [place], [place], [address], [place] tel:[phone] [place] No Information 9 Makler Luke. . [facility], [place], [place], [address], [place] tel:[phone] [place] No Information 9 Makler Luke. . [facility], [place], [place], [address], [place] tel:[phone] [place] No Information 9 Makler Luke. . [facility], [place], [place], [address], [place] tel:[phone] [place] No Information 9 Makler Luke. . [facility], [place], [address], [place] tel:[phone] [place] No Information 9 Makler Luke. . [facility], [place], [place], [address], [place] tel:[phone] [place] No Information 9 Makler Luke. . [facility], [place], [place], [address], [place] tel:[phone] [place] No Information 9 Makler Luke. . [facility], [place], [place], [address], [place] tel:[phone] [place] No Information 9 Makler Luke. . [facility], [place], [address], [place] tel:[phone] [place] No Information 9 Makler Luke. . [facility], [place], [place], [address], [place] tel:[phone] [place] No Information 9 Makler Luke. . [facility], [place], [place], [address], [place] tel:[phone] [place] No Information Teddy Bueno. . Family History Family Member Type Diagnosis Age At Onset No Information Payers Payer name Insurance type Covered alliance party ID Authoriza tiscot(s) Medicare [place] MB [id number] [facility] Medicare Supplement [id number] Social History Type Description Quantity Date Captured [...]
--- OUTSIDE RECORDS SUMMARY | 2021-11-27 10:09 | XMS_ITS | Continuity of Care Document ---
Author Organization [employer] [place] Address [address] [place] [address] [address] [place] [address] Phone Care Team Providers Care Occupational Analyst Name Role Phone Darek PT, MYAT, Cory Unavailable Unavailable Procedures Procedure Date Progress Note Neuromuscular Re-Ed Therapeutic Activities Neuromuscular Re-Ed Therapeutic Activities Therapeutic Activities Neuromuscular Re-Ed Neuromuscular Re-Ed Therapeutic Activities Therapeutic Activities Neuromuscular Re-Ed Therapeutic Activities Therapeutic Activities Neuromuscular Re-Ed PT Evaluation High Complexity Neuromuscular Re-Ed Therapeutic Activities Therapeutic Activities Therapeutic Exercise Therapeutic Activities Therapeutic Exercise Therapeutic Activities Therapeutic Exercise Therapeutic Activities Therapeutic Exercise Therapeutic Activities Therapeutic Exercise Therapeutic Activities Neuromuscular Re-Ed Therapeutic Activities Neuromuscular Re-Ed Progress Note Therapeutic Activities Therapeutic Exercise Progress Note Therapeutic Activities Neuromuscular Re-Ed Therapeutic Exercise Therapeutic Activities Neuromuscular Re-Ed Progress Note Neuromuscular Re-Ed Therapeutic Activities Therapeutic Exercise Therapeutic Activities Therapeutic Exercise Therapeutic Activities Neuromuscular Re-Ed Therapeutic Exercise Therapeutic Activities Neuromuscular Re-Ed Progress Note Therapeutic Activities Neuromuscular Re-Ed Therapeutic Activities Neuromuscular Re-Ed Therapeutic Exercise Therapeutic Activities Neuromuscular Re-Ed Therapeutic Exercise Therapeutic Activities Neuromuscular Re-Ed Therapeutic Exercise Therapeutic Activities Manual Therapy Neuromuscular Re-Ed Therapeutic Activities Therapeutic Exercise Manual Therapy Therapeutic Activities Therapeutic Exercise Manual Therapy Therapeutic Activities Therapeutic Exercise Manual Therapy PT Evaluation Moderate Complexity Therapeutic Exercise Manual Therapy Therapeutic Exercise Therapeutic Activities Therapeutic Exercise Therapeutic Activities Therapeutic Exercise Therapeutic Activities Neuromuscular Re-Ed Progress Note Therapeutic Activities Therapeutic Exercise Neuromuscular Re-Ed Therapeutic Activities Neuromuscular Re-Ed Therapeutic Activities Neuromuscular Re-Ed Therapeutic Exercise Therapeutic Activities Neuromuscular Re-Ed Therapeutic Activities Neuromuscular Re-Ed Therapeutic Exercise Therapeutic Activities Neuromuscular Re-Ed Therapeutic Exercise Therapeutic Activities PT Evaluation Moderate Complexity Therapeutic Activities Therapeutic Exercise Advance Directives Directive Yes / No Effective Date File Name No Information Encounters Encounter Description Practice Location Reason(s) For Visit Diagnoses Date Provider Providers Copied on Encounter [facility], [address] [address], [place], [place], [id number], tel:[phone] [place] No Information Sergio-0 6-202 2 Klahn Cory. . [facility] [address], [id number], tel:[phone] [place] No Information Sep-1 5- 2 Klahn Cory. . Referring Provider: [address], [place], [address]. tel:[phone] [place] [address] [address] [address], [place], [place], [address], tel:[phone] [place] No Information 1 2 Klahn Cory. . Referring Provider: [address], [place], [address]. tel:[phone] [place] [address], [id number], [place] tel:[phone] [facility] [place] No Information Sep-0 6 2 Klahn Cory. . Referring Provider: [address], [place], [address]. tel:[phone] [place] [address], [id number], [place] tel:[phone] [facility] No Information Aug-3 0-202 2 Klahn Cory. . Referring Provider: [address], [place], [address]. tel:[phone] [address] [place] [address] 2121 [facility], [place], [place], [address], [place] tel:[phone] [place] No Information Mar-2 8-202 2 Klebenezern Cory. . Referring Provider: [address], [place], [address]. tel:[phone] [place] [address] [address], [place], [place], [address], [place] tel:[phone] [facility] [place] No Information Mar-2 3-202 2 Klahn Cory. . Referring Provider: [address], [place], [address]. tel:[phone] [place] [address] [address], [place], [place], [address], [place] tel:[phone] [place] No Information Mar-2 1-202 2 [place] Eladio. . Referring Provider: [address], [place], [address]. tel:[phone] [place] [address] [address], [place], [place], [address], [place] tel:[phone] [facility] No Information Mar-1 6-202 2 Juliannen Cory. . Referring Provider: [address], [place], [address]. tel:[phone] [place] [address] [address], [place], [place], [address], [place] tel:[phone] [place] No Information Mar-2 7-202 0 Makler Luke. . [facility], [place], [place], [address], [place] tel:[phone] [place] No Information Mar-2 0-202 0 Makler Luke. . [facility], [place], [place], [address], [place] tel:[phone] [place] No Information Mar-1 1-202 0 Makler Luke. . [facility], [place], [place], [address], [place] tel:[phone] [place] No Information Mar-0 6-202 0 Makler Luke. . [facility], [place], [place], [address], [place] tel:[phone] [place] No Information - 0 Makler Luke. . [facility], [place], [place], [address], [place] tel:[phone] [place] No Information 0 Makler Luke. . [facility], [place], [place], [address], [place] tel:[phone] [place] No Information 0 Makler Luke. . [facility], [place], [place], [address], [place] tel:[phone] [place] No Information 0 Makler Luke. . [facility], [place], [place], [address], [place] tel:[phone] [place] No Information 0 Makler Luke. . [facility], [place], [place], [address], [place] tel:[phone] [place] No Information - 0 Makler Luke. . [facility], [place], [place], [address], [place] tel:[phone] [place] No Information 0- 0 Makler Luke. . [facility], [place], [place], [address], [place] tel:[phone] [place] No Information - 0 Makler Luke. . [facility], [place], [place], [address], [place] tel:[phone] [place] No Information 2- 0 Makler Luke. . [facility], [place], [place], [address], [place] tel:[phone] [place] No Information 0-201 9 Makler Luke. . [facility], [place], [place], [address], [place] tel:[phone] [place] No Information Dec-2 6-201 9 Makler Luke. . [facility], [place], [place], [address], [place] tel:[phone] [place] No Information Dec-2 4-201 9 Makler Luke. . [facility], [place], [place], [address], [place] tel:[phone] [place] No Information Dec-2 0-201 9 Makler Luke. . [facility], [place], [place], [address], [place] tel:[phone] [place] No Information Dec-1 6-201 9 Makler Luke. . [facility], [place], [place], [address], [place] tel:[phone] [place] No Information Dec-1 3-201 9 Makler Luke. . [facility], [place], [place], [address], [place] tel:[phone] [facility] [place] No Information Dec-0 4-201 9 Makler Luke. . [facility], [place], [place], [address], [place] tel:[phone] [facility] No Information Dec-0 2-201 9 Makler Luke. . [facility], [place], [place], [address], [place] tel:[phone] [facility] [place] No Information Nov-2 2-201 9 Makler Luke. . [facility], [place], [place], [address], [place] tel:[phone] [facility] [place] No Information Nov-1 8-201 9 Makler Luke. . [facility], [place], [place], [address], [place] tel:[phone] [place] No Information 9 Makler Luke. . [facility], [place], [place], [address], [place] tel:[phone] [facility] [place] No Information 9 Makler Luke. . [facility], [place], [place], [address], [place] tel:[phone] [facility] [place] No Information 9 Makler Luke. . [facility], [place], [place], [address], [place] tel:[phone] [facility] [place] No Information 9 Makler Luke. . [facility], [place], [place], [address], [place] tel:[phone] [place] No Information 9 Makler Luke. . [facility], [place], [place], [address], [place] tel:[phone] [facility] [place] No Information 9 Makler Luke. . [facility], [place], [place], [address], [place] tel:[phone] [facility] [place] No Information 9 Makler Luke. . [facility], [place], [place], [address], [place] tel:[phone] [facility] [place] No Information 9 Makler Luke. . [facility], [place], [place], [address], [place] tel:[phone] [facility] [place] No Information 9 Makler Luke. . [facility], [place], [place], [address], [place] tel:[phone] [place] No Information 9 Makler Luke. . [facility] [place], [place], [place], [address], [place] tel:[phone] [place] No Information Teddy Bueno. . Family History Family Member Type Diagnosis Age At Onset No Information Payers Payer name Insurance type Covered constitution party ID Authoriza tiscot(s) Medicare [place] MB [id number] [facility] Medicare Supplement [id number] Social History Type Description Quantity Date Captured [...]
--- OUTSIDE RECORDS SUMMARY | 2021-11-27 10:09 | XMS_ITS | Continuity of Care Document ---
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 [address] [address], [place], [place], [id number], tel:[phone] [place] No Information Sergio-0 6-202 2 Klahn Cory. . [facility] [address], [id number], tel:[phone] [place] No Information Sep-1 5- 2 Klahn Cory. . Referring Provider: [address], [place], [address]. tel:[phone] [place] [address] [address] [address], [place], [place], [id number], tel:[phone] [place] No Information 2 Klahn Cory. . Referring Provider: [address], [place], [address]. tel:[phone] [place] [address], [id number], [place] tel:[phone] [place] No Information Sep-0 6 2 Klahn Cory. . Referring Provider: [address], [place], [address]. tel:[phone] [place] [address], [id number], [place] tel:[phone] [place] No Information Aug-3 0-202 2 Klahn Cory. . Referring Provider: [address], [place], [address]. tel:[phone] [place] [address] 2121 [facility], [place], [place], [id number], [place] tel:[phone] [place] No Information Mar-2 8-202 2 Juliannen Cory. . Referring Provider: [address], [place], [address]. tel:[phone] [place], [place] [id number] [address], [place], [place], [id number], [place] tel:[phone] [place] No Information Mar-2 3-202 2 Klahn Cory. . Referring Provider: [address], [place], [address]. tel:[phone] [place], [place] [id number] [address], [place], [place], [address], [place] tel:[phone] [place] No Information Mar-2 1-202 2 Modglin Eladio. . Referring Provider: [address], [place], [address]. tel:[phone] [place], [place] [id number] [address], [place], [place], [address], [place] tel:[phone] [place] No Information Mar-1 6-202 2 Juliannen Cory. . Referring Provider: [address], [place], [address]. tel:[phone] [place], [place] [id number] [address], [place], [place], [address], [place] tel:[phone] [place] No Information Mar-2 7-202 [address] Luke[address] . [facility], [place], [place], [address], [place] tel:[phone] [place] No Information Mar-2 0-202 [address] Mak[address] Luke[address] . [facility], [place], [place], [address], [place] tel:[phone] [place] No Information Mar-1 1-202 [address] Mak[address] Luke[address] . [facility], [place], [place], [address], [place] tel:[phone] [place] No Information Mar-0 6-202 [address] Mak[address] Luke[address] . [facility], [place], [place], [address], [place] tel:[phone] [place] No Information - 0 Makler Luke. . [facility], [place], [place], [address], [place] tel:[phone] [place] No Information 0 Makler Luke. . [facility], [place], [place], [address], [place] tel:[phone] [place] No Information 0 Makler Luke. . [facility], [place], [address], [place] tel:[phone] [place] No Information 0 Makler Luke. . [facility], [place], [place], [address], [place] tel:[phone] [place] No Information 0 Makler Luke. . [facility], [place], [address], [place] tel:[phone] [place] No Information - 0 Makler Luke. . [facility], [place], [place], [address], [place] tel:[phone] [place] No Information 0- 0 Makler Luke. . [facility], [place], [address], [place] tel:[phone] [place] No Information - 0 Makler Luke. . [facility], [place], [place], [address], [place] tel:[phone] [place] No Information 2- 0 Makler Luke. . [facility], [place], [place], [address], [place] tel:[phone] [place] No Information 0-201 [address] Mak[address] . [facility], [place], [place], [address], [place] tel:[phone] [place] No Information Dec-2 6-201 [address] . [facility], [place], [place], [address], [place] tel:[phone] [place] No Information Dec-2 4-201 [address] . [facility], [place], [place], [address], [place] tel:[phone] [place] No Information Dec-2 0-201 [address] . [facility], [place], [place], [address], [place] tel:[phone] [place] No Information Dec-1 6-201 [address] . [facility], [place], [address], [place] tel:[phone] [place] No Information Dec-1 3-201 [address] . [facility], [place], [place], [address], [place] tel:[phone] [place] No Information Dec-0 4-201 [address] . [facility], [place], [place], [address], [place] tel:[phone] [place] No Information Dec-0 2-201 [address] Mak[address] . [facility], [place], [address], [place] tel:[phone] [place] No Information Nov-2 2-201 [address] Mak[address] . [facility], [place], [place], [address], [place] tel:[phone] [place] No Information Nov-1 8-201 [address] Mak[address] Luke[address] . [facility], [place], [place], [address], [place] tel:[phone] [place] No Information 9 Mak[address] Luke[address] . [facility], [place], [place], [address], [place] tel:[phone] [place] No Information 9 Makler Luke. . [facility], [place], [place], [address], [place] tel:[phone] [place] No Information 9 Mak[address] Luke[address] . [facility], [place], [address], [place] tel:[phone] [place] No Information 9 Mak[address] Luke[address] . [facility], [place], [place], [address], [place] tel:[phone] [place] No Information 9 Makler Luke. . [facility], [place], [place], [address], [place] tel:[phone] [place] No Information [address] Luke[address] . [facility], [place], [place], [address], [place] tel:[phone] [place] No Information 9 Makler Luke. . [facility], [place], [place], [address], [place] tel:[phone] [place] No Information 9 [address] Luke[address] . [facility], [place], [place], [address], [place] tel:[phone] [place] No Information 9 Makler Luke. . [facility], [place], [place], [address], [place] tel:[phone] [place] No Information 9 Makler Luke. . [facility] [place], [place], [place], [address], [place] tel:[phone] [place] No Information Teddy Bueno. . Family History Family Member Type Diagnosis Age At Onset No Information Payers Payer name Insurance type Covered constitution party ID Authoriza tiscot(s) Medicare [place] MB [id number] [facility] Medicare Supplement [id number] Social History Type Description Quantity Date Captured [...]
--- OUTSIDE RECORDS SUMMARY | 2021-11-27 10:09 | XMS_ITS | Continuity of Care Document ---
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 . [facility] [address], [id number], tel:[phone] [place] No Information Sep-1 5- 2 Klahn Cory. . Referring Provider: [address], [place], [address]. tel:[phone] [place] [address] [address] [address], [place], [place], [address], tel:[phone] [place] No Information 2 Klahn Cory. . Referring Provider: [address], [place], [address]. tel:[phone] [place] [address], [id number], [place] tel:[phone] [place] No Information Sep-0 6 2 Klahn Cory. . Referring Provider: [address], [place], [address]. tel:[phone] [place] [address], [id number], [place] tel:[phone] [place] No Information Aug-3 0-202 2 Klahn Cory. . Referring Provider: [address], [place], [address]. tel:[phone] [place] [address] 2121 [facility], [place], [place], [address], [place] tel:[phone] [place] No Information Mar-2 8-202 2 Juliannen Cory. . Referring Provider: [address], [place], [address]. tel:[phone] [place], [place] [address], [place], [place], [address], [place] tel:[phone] [place] No Information Mar-2 3-202 2 Klahn Cory. . Referring Provider: [address], [place], [address]. tel:[phone] [place], [place] [address] [address], [place], [place], [address], [place] tel:[phone] [place] No Information Mar-2 1-202 2 [place] Eladio. . Referring Provider: [address], [place], [address]. tel:[phone] [place], [place] [address] [address], [place], [place], [address], [place] tel:[phone] [place] No Information Mar-1 6-202 2 Juliannen Cory. . Referring Provider: [address], [place], [address]. tel:[phone] [place], [place] [address] [address], [place], [place], [address], [place] tel:[phone] [place] No Information Mar-2 7-202 0 Makler Luke. . [facility], [place], [place], [address], [place] tel:[phone] [place] No Information Mar-2 0-202 0 Makler Luke. . [facility], [place], [place], [address], [place] tel:[phone] [place] No Information Mar-1 1-202 0 Makler Luke. . [facility], [place], [place], [address], [place] tel:[phone] [place] No Information Mar-0 6-202 0 Makler Luke. . [facility], [place], [place], [address], [place] tel:[phone] [place] No Information - 0 Makler Luke. . [facility], [place], [place], [address], [place] tel:[phone] [place] No Information 0 Makler Luke. . [facility], [place], [place], [address], [place] tel:[phone] [place] No Information 0 Makler Luke. . [facility], [place], [place], [address], [place] tel:[phone] [place] No Information 0 Makler Luke. . [facility], [place], [place], [address], [place] tel:[phone] [place] No Information 0 Makler Luke. . [facility], [place], [place], [address], [place] tel:[phone] [place] No Information - 0 Makler Luke. . [facility], [place], [place], [address], [place] tel:[phone] [place] No Information 0- 0 Makler Luke. . [facility], [place], [place], [address], [place] tel:[phone] [place] No Information - 0 Makler Luke. . [facility], [place], [place], [address], [place] tel:[phone] [place] No Information 2- 0 Makler Luke. . [facility], [place], [place], [address], [place] tel:[phone] [place] No Information 0-201 9 Makler Luke. . [facility], [place], [place], [address], [place] tel:[phone] [place] No Information Dec-2 6-201 9 Makler Luke. . [facility], [place], [place], [address], [place] tel:[phone] [place] No Information Dec-2 4-201 9 Makler Luke. . [facility], [place], [place], [address], [place] tel:[phone] [place] No Information Dec-2 0-201 9 Makler Luke. . [facility], [place], [place], [address], [place] tel:[phone] [place] No Information Dec-1 6-201 9 Makler Luke. . [facility], [place], [place], [address], [place] tel:[phone] [place] No Information Dec-1 3-201 9 Makler Luke. . [facility], [place], [place], [address], [place] tel:[phone] [place] No Information Dec-0 4-201 9 Makler Luke. . [facility], [place], [place], [address], [place] tel:[phone] [place] No Information Dec-0 2-201 9 Makler Luke. . [facility], [place], [place], [address], [place] tel:[phone] [place] No Information Nov-2 2-201 9 Makler Luke. . [facility], [place], [place], [address], [place] tel:[phone] [place] No Information Nov-1 8-201 9 Makler Luke. . [facility], [place], [place], [address], [place] tel:[phone] [place] No Information 9 Makler Luke. . [facility], [place], [place], [address], [place] tel:[phone] [place] No Information 9 Makler Luke. . [facility], [place], [place], [address], [place] tel:[phone] [place] No Information 9 Makler Luke. . [facility], [place], [place], [address], [place] tel:[phone] [place] No Information 9 Makler Luke. . [facility], [place], [place], [address], [place] tel:[phone] [place] No Information 9 Makler Luke. . [facility], [place], [place], [address], [place] tel:[phone] [place] No Information 9 Makler Luke. . [facility], [place], [place], [address], [place] tel:[phone] [place] No Information 9 Makler Luke. . [facility], [place], [place], [address], [place] tel:[phone] [place] No Information 9 Makler Luke. . [facility], [place], [place], [address], [place] tel:[phone] [place] No Information 9 Makler Luke. . [facility], [place], [place], [address], [place] tel:[phone] [place] No Information [address] . [facility] [place], [place], [place], [address], [place] tel:[phone] [place] No Information Teddy Bueno. . Family History Family Member Type Diagnosis Age At Onset No Information Payers Payer name Insurance type Covered libertarian ID Authoriza tiscot(s) Medicare [place] MB [id number] Medicare Supplement [id number] Social History Type Description Quantity Date Captured [...]
--- NOTE | ~2025-05-12 | CT_ITS ---
CT ABDOMEN AND PELVIS WITHOUT CONTRAST Clinical History: poss kidney stone, hematuria and sediment Comparison: None Technique: Unenhanced axial images lung bases to symphysis pubis Coronal, sagittal reformats CT images acquired with automatic exposure control for dose reduction DLP: 914 mGy-cm Findings: Without intravenous contrast, sensitivity for detecting visceral parenchymal abnormalities decreased. Lung bases: Mild interlobular septal thickening. Visualized heart and pericardium: Unremarkable. Liver: Enlarged. Nodular contour likely cirrhosis. Gallbladder: Unremarkable. Spleen: Unremarkable. Pancreas: Unremarkable. Adrenal glands: Unremarkable. Kidneys: Right kidney- No hydronephrosis. No renal stones. Left kidney- No hydronephrosis. No renal stones. Heterogeneous parenchyma, probably cysts. Distal esophagus/stomach: Small hiatal hernia. Distal esophageal wall thickening/esophagitis. Small bowel loops: Normal caliber and wall thickness. Colon: Diverticula. Normal caliber and wall thickness. Normal RLQ appendix. Nodes: No enlarged nodes. Peritoneum: No ascites. No free intraperitoneal air. Urinary bladder: Multiple intraluminal stones. Severe wall thickening. Prostate: Enlarged. Bones: No acute bony abnormality. Soft tissues: Unremarkable. Unopacified abdominal aorta: No aneurysmal dilatation. IMPRESSION: 1. Multiple stones within urinary bladder. 2. Severe urinary bladder wall thickening favoring cystitis but malignancy cannot be excluded. 3. Prostatomegaly. 4. No renal stones or hydronephrosis. 5. Additional findings as above. Reviewed, dictated and finalized at location R. 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 Multiple stones within urinary bladder. 2. Severe urinary bladder wall thickening favoring cystitis but malignancy can not be excluded. 3. Prostatomegaly. 4. No renal stones or hydronephrosis. 5. Additional findings as above.
[2025-05-12 22:31] VITALS: BP 155/79; PULSE 52; RESP 24; TEMP 36.7; O2SAT 96
[2025-05-12 23:08] LABS: Non Pathogenic Casts 0-2
[2025-05-12 23:12] LABS: Add Urine Microscopic? YES; Appearance Urine Turbid (Clear); Glucose Urine UA Negative (Negative); Leukocyte Esterase Ur 1+ LEU/UL (Negative); Nitrate Urine Negative (Negative); Specific Grav Ur 1.028 (1.001-1.035)
[2025-05-13 00:12] VITALS: BP 142/78; PULSE 44; RESP 18; O2SAT 99
[2025-05-13 00:21] LABS: Alanine Aminotransferase 15 U/L (6-50); Albumin Level 4.4 g/dL (3.5-5.1); Alkaline Phosphatase 82 U/L (38-126); Anion Gap 10 mmol/L (4-12); Aspartate Amino Transferase 21 U/L (17-59); Bilirubin,Total 0.5 mg/dL (0.2-1.3); Blood Urea Nitrogen 28 mg/dL (9-20); Calcium 9.5 mg/dL (8.4-10.2); Carbon Dioxide 26 mmol/L (22-30); Chloride 103 mmol/L (98-107); Estimated CRCL calculation 54 ml/min; Estimated Glomerular Filt Rate 57; Glucose 115 mg/dL (65-110); Potassium 4.4 mmol/L (3.4-5.0); Sodium 139 mmol/L (137-145); Total Protein 7.8 g/dL (6.3-8.2)
[2025-05-13 00:40] LABS: Hematocrit 35.5 % (42.0-52.0); Hemoglobin 11.6 g/dL (14.0-18.0); Immature Granulocyte Percent A 0.8 % (0-0.5); Lymphocytes Absolute Auto 1.50 K/mm3 (0.9-3.2); Mean Corpuscular HGB Conc 32.7 g/dl (32-36); Mean Corpuscular Hemoglobin 31.3 pg (26-34); Mean Corpuscular Volume 95.7 fl (80-100); Nucleated Red Blood Cells Absolute Auto 0.000 K/mm3 (0.0-0.012); Nucleated Red Blood Cells Perc 0.0 % (0.0-0.2); Platelet Count Result 197 k/mm3 (150-375); Red Blood Count 3.71 M/mm3 (4.6-6.20); White Blood Count 8.9 K/mm3 (4.5-10.0)
--- NOTE | 2025-05-13 00:43 | ED.MALEGU ---
HPI - Male Genitourinary General Chief complaint: Urogenital-Male Stated complaint: kidney stones Time Seen by Provider: 05/12/25 23:39 Source: patient Mode of arrival: ambulatory Limitations: no limitations History of Present Illness HPI Narrative: This is a 79-year-old male with history of bradycardia, hypertension, anemia who presents to the ED for hematuria. Patient states for the past week he has been having hematuria with a sanding a sensation with irregular voiding. He has also been having urgency. Denies abdominal pain, nausea vomiting. He has never had this before. He is a nonsmoker. Related Data Home Medications ?Medication ?Instructions ?Recorded ?Confirmed ?Last Taken ?Type aspirin 81 mg tablet,delayed 81 mg PO DAILY 08/19/20 02/23/25 Unknown History release (Adult Aspirin Regimen) Allergies Allergy/AdvReac Type Severity Reaction Status Date / Time No Known Allergies Allergy Verified 02/23/25 10:00 Review of Systems Review of Systems: Gen.: Denies fevers or chills Eyes: Denies eye pain or visual change ENT: Denies congestion Respiratory: Denies shortness of breath or cough CV: Denies chest pain or palpitations GI: Denies abdominal pain nausea, emesis or diarrhea as per HPI Musculoskeletal: Denies back pain or muscle pain Neuro: Denies numbness, tingling, weakness or focal weakness Skin: Denies rash Except as documented, all other systems reviewed and negative [facility] Past Medical History Medical History IgA gammopathy Thoracic aortic aneurysm without rupture Prediabetes Hypertension History of anemia Surgical History Surgical History H/O Achilles tendon repair Family History Family History Mother Hypertension Father Heart disease Sibling Heart disease Hypertension Liver cancer Grandparent Hypertension Social History Social History Smoking status: Never smoker Second hand tobacco smoke exposure: No Alcohol intake: current Drinks per week: 1 Substance use: never Substance use type: does not use Lack of Transportation: No Lack of Food: Never True Current Housing: I Have Housing Concerned About Future Housing: No Difficulty Paying Gas/Electric Bills: No Difficulty Paying for Meds: No Currently Unemployed: No Education: Master's Degree or Higher Difficulty w/ Childcare or Family Care: No Living arrangements: with family Occupation/Education: retired Gender identity (if verbalized by the patient): Male Spiritual care concerns: No Agree to blood products: Yes Exam Narrative: APPEARANCE: No acute distress, nontoxic, resting in bed EYES: EOMI HEENT: Normocephalic, atraumatic, OMM RESPIRATORY: No respiratory distress Clear to auscultation bilaterally with no rhonchi wheezing or rales. CARDIOVASCULAR: Regular rate and rhythm without murmurs rubs or gallops. ABDOMINAL: Soft, nontender, nondistended, no rebound or guarding MUSCULOSKELETAl: Moves all extremities. No clubbing, cyanosis or edema. NEURO: Awake and alert. Following commands, speech normal, no focal deficits SKIN:: Warm, dry. No rashes lesions or abrasions PSYCHIATRIC: Normal affect/mood, Course Vital Signs Vital signs: Vital Signs Temperature 98.0 F 05/12/25 22:31 Pulse Rate 52 L 05/12/25 22:31 Respiratory Rate 24 H 05/12/25 22:31 Blood Pressure 155/79 H 05/12/25 22:31 Pulse Oximetry 96 05/12/25 22:31 Oxygen Delivery Room Air 05/12/25 22:31 Temperature 98.0 F 05/12/25 22:31 Pulse Rate 54 L 05/13/25 02:52 Respiratory Rate 18 05/13/25 02:52 Blood Pressure 151/79 H 05/13/25 02:52 Pulse Oximetry 100 05/13/25 02:52 Oxygen Delivery Room Air 05/12/25 22:31 MDM - Male Genitourinary MDM Narrative Medical decision making narrative: 79-year-old male Presenting for hematuria and voiding sediment. On initial evaluation patient was in no acute distress afebrile, hemodynamic stable. Differentials include but are not limited to: Ureterolithiasis, UTI, cancer Notable exam findings: Abdomen soft nontender, no CVA tenderness I personally reviewed the patient's lab result. Notable lab findings: Anemic to 11.6, mildly elevated BUN at 28. UA consistent with gross hematuria. I personally reviewed the patient's images and interpret as follows: CT abdomen/pelvis showed innumerable calculi within the urinary bladder CT abdomen/pelvis read by Radiology showed no renal calculi or hydronephrosis with thickening of the urinary bladder wall. Prostate is enlarged and inhomogeneous. Given the number of stones and gross hematuria the patient would benefit from a urology evaluation. Patient was given a referral to Dr. Yao, urology, for further evaluation. Patient was agreeable to this plan. Given strict return precautions. Medical Records Attestation: I reviewed the patient's medical records. Lab Data Attestation: I reviewed the patient's lab results. 05/13/25 00:05 05/13/25 00:05 Labs: Lab Results 05/12/25 05/13/25 Range/Units 22:57 00:05 WBC 8.9 (4.5-10.0) K/mm3 RBC 3.71 L (4.6-6.20) M/mm3 Hgb 11.6 L (14.0-18.0) g/dL Hct 35.5 L (42.0-52.0) % MCV 95.7 (80-100) fl MCH 31.3 (26-34) pg MCHC 32.7 (32-36) g/dl RDW 14.5 (11.5-14.5) % Plt Count 197 (150-375) k/mm3 MPV 9.9 (7.4-10.4) fl Immature Gran % (Auto) 0.8 H (0-0.5) % Neut % (Auto) 66.0 (45.5-73.1) % Lymph % (Auto) 16.9 L (18.3-44.2) % [place] % (Auto) 7.8 (2.6-8.5) % Eos % (Auto) 8.1 H (0-4.4) % Baso % (Auto) 0.4 (0.2-1.2) % Lymph # (Auto) 1.50 (0.9-3.2) K/mm3 [place] # (Auto) 0.7 H (0.1-0.6) K/mm3 Eos # (Auto) 0.7 H (0-0.3) K/mm3 Baso # (Auto) 0.0 (0.0-0.1) K/mm3 Abs Immat Gran (auto) 0.07 H (0.00-0.031) K/mm3 Absolute Neuts (auto) 5.9 (1.3-6.7) K/mm3 Absolute Nucleated RBC 0.000 (0.0-0.012) K/mm3 Nucleated RBC % 0.0 (0.0-0.2) % Sodium 139 (137-145) mmol/L Potassium 4.4 (3.4-5.0) mmol/L Chloride 103 (98-107) mmol/L Carbon Dioxide 26 (22-30) mmol/L Anion Gap 10 (4-12) mmol/L BUN 28 H (9-20) mg/dL Creatinine 1.23 (0.7-1.3) mg/dL Estim Creat Clear Calc 54 ml/min Estimated GFR 57 L (59 - ) Glucose 115 H (65-110) mg/dL Calcium 9.5 (8.4-10.2) mg/dL Total Bilirubin 0.5 (0.2-1.3) mg/dL AST 21 (17-59) U/L ALT 15 (6-50) U/L Alkaline Phosphatase 82 (38-126) U/L Total Protein 7.8 (6.3-8.2) g/dL Albumin 4.4 (3.5-5.1) g/dL Urine Color Valorie (Yellow) Urine Appearance Turbid H (Clear) Urine pH 5.0 (5.0-9.0) Ur Specific [place] 1.028 (1.001-1.035) Urine Protein 4+ H (Negative) mg/dL Urine Glucose (UA) Negative (Negative) mg/dL Urine Ketones Negative (Negative) mg/dL Ur Blood (Man) 3+ H (Negative) Urine Nitrate Negative (Negative) Urine Bilirubin 1+ H (Negative) Urine Urobilinogen 0.2 (<2.0) mg/dL Leukocyte Esterase Rfl 1+ H (Negative) KRISTINE/UL Urine RBC >100 H (0-2) /hpf Urine WBC 21-50 H (0-3) /hpf Ur Squamous Epith Cells None seen (Few) /hpf Urine Bacteria Trace /hpf Urine Casts 0-2 Discharge Plan Discharge Clinical Impression: Bladder calculi Hematuria Qualifiers: Hematuria type: gross Qualified Code(s): R31.0 - Gross hematuria Anemia Qualifiers: Anemia type: unspecified type Qualified Code(s): D64.9 - Anemia, unspecified Patient Disposition: Home Condition: Stable Instructions: Antibiotic Form, Bladder Stones (ED) Additional Instructions: You were seen in the ED today for hematuria. He you were found to have multiple stones in her bladder. This will need further evaluation by urologist, your given a referral to Dr. Yao, call his office in the morning to schedule appointment. Strain your bladder and put any of the collected stones and the specimen cup. Return to ED for any new worsening symptoms. Patient Language: Setswana Prescriptions: No Action aspirin [Adult Aspirin Regimen] 81 mg tablet,delayed release (DR/EC) 81 mg PO DAILY clobetasol 0.05 % cream 1 applic topical DAILY Qty: 60 1RF albuterol sulfate [Ventolin HFA] 90 mcg/actuation HFA aerosol inhaler 1 puff inhalation Q4H PRN (Reason: shortness of breath or wheezing) Qty: 8.5 3RF benzonatate 100 mg capsule 100 mg PO TID PRN (Reason: cough) Qty: 30 0RF betamethasone dipropionate 0.05 % cream 1 applic topical DAILY PRN (Reason: skin irritation) Qty: 45 0RF atorvastatin [Lipitor] 10 mg tablet 10 mg PO DAILY Qty: 90 1RF amlodipine 5 mg tablet 5 mg PO DAILY Qty: 90 1RF oxybutynin chloride 5 mg tablet 5 mg PO BID Qty: 180 1RF metoprolol succinate 100 mg tablet extended release 24 hr See Rx Instructions .ROUTE .COMPLEX Qty: 90 3RF Dose Instruction: TAKE 1 TABLET DAILY Rx Instructions: TAKE 1 TABLET DAILY omeprazole 20 mg capsule,delayed release(DR/EC) 20 mg PO BID Qty: 180 1RF losartan 100 mg tablet 100 mg PO DAILY Qty: 90 2RF Follow-up/Referrals: Irineo,MD Idalia [Primary Care Provider, Family Practice]
--- OUTSIDE RECORDS SUMMARY | 2025-05-13 02:02 | XMS_ITS | Clinical Summary ---
Author Organization [facility] Address [address] [place] [address] Care Team Providers Care Career Technical Education Instructor Name Role Phone Idalia Cabello MD Primary Care Provider [phone] Allergies No known active allergies Medications losartan (COZAAR) 100 mg tablet take 1 tablet by oral route every day 0 0 09/21/19 17 Active Additional Information Patient taking differently:100 mgoral Every morning, Indications: hypertension, Informant: Self, Reported on 07/30/2024 VITAMIN A ORALIndications: suplement Take 1 tablet by mouth every other day Active ergocalciferol, vitamin D2, (VITAMIN D2 ORAL)Indications :suplement Take 1 tablet by mouth every other day Active ascorbic acid (VITAMIN C) 500 mg tablet,chewableI ndications:suple ment Take 1 tablet/chew tab (500 mg total) by mouth every morning Active VITAMIN B COMPLEX ORALIndications: suplement Take 1 tablet by mouth every other day Active NIACIN ORALIndications: suplement Take 1 tablet by mouth every other day Active Lactobacillus acidophilus (PROBIOTIC ORAL)Indications :gut health Take 1 tablet by mouth every other day Active betamethasone dipropionate (DIPROLENE) 0.05 % cream betamethasone dipropionate 0.05 % topical cream Active omeprazole (PriLOSEC) 20 mg capsule omeprazole 20 mg capsule,delayed release Active metoprolol XL (TOPROL-XL) 100 mg 24 hr tablet 02/12/20 21 Active Active Problems Problem Noted Date Diagnosed Date Achilles rupture, 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 Overview (03/09/2019): Added automatically from request for surgery [id number] Aneurysm of thoracic aorta 04/02/2014 Overview (09/27/2016): Aneurysm of thoracic aorta Surgical History Surgery Date Site/Laterality Comments COLONOSCOPY Medical History Medical History Date Comments Hypertension Hypertension Gastric reflux Family History Medical History Relation Name Comments Heart disease Brother Hypertension Brother Stroke Brother Arthritis Father Heart attack Father Heart disease Father Hypertension Father Arthritis Mother Hypertension Mother Cancer Sister Relation Name Status Comments Brother Father Mother Sister Social History Tobacco Use Types Packs/Day Years Used Date Smoking Tobacco: Never Smokeless Tobacco: Never Tobacco Cessation:Counseling Given: Not Answered Alcohol Use Standard Drinks/Week Comments Yes 1 (1 standard drink = 0.6 oz pur e alcohol) Sex and Gender Information Value Date Recorded Sex Assigned at Not on file Legal Sex Male 2:16 AM 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 Gender Identity Not on file Sexual Orientation Straight 03/03/2019 9: 48 AM CDT Last Filed Vital Signs Vital Sign Reading Time Taken Comments Blood Pressure 112/68 07/30/2024 9:22 AM 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 Pulse 64 07/30/2024 9:22 AM 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 Temperature 36.4 C (97.5 F) 04/08/2019 11:19 AM CDT Respiratory Rate 16 04/08/2019 11:19 AM CDT Oxygen Saturation 95% 07/30/2024 9:22 AM 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 Inhaled Oxygen Concentration - - Weight 106 kg (233 lb 11.2 oz) 07/30/2024 9:22 A M 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 Height 182.9 cm (6') 07/30/2024 9:22 AM 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 Body Mass Index 31.7 07/30/2024 9:22 AM 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 Plan of Treatment Health Maintenance Due Date Last Done Comments Depression Screening 1945 Fall Risk Assessment 1945 Hepatitis C Screening 1945 Hepatitis B Screening 1963 Pneumococcal vaccine 65+ (1 of 1 - PCV) 1995 Zoster Vaccine (1 of 2) 1995 Well Visit 65+ 2010 DTaP/Tdap/Td Vaccine (2 - Td or Tdap) 07/28/2023 07/28/2013 Influenza Vaccine (#1) 2025 8, 05/01/2017, 05/03/2016, Additional history exists Medical Devices Implanted Type Area Pyroglazer Device Identifier Shelf Expiration Date Model / Serial / Lot [employer] [id number] Tenodesis 6.25mm 15mm Acl Screw Interference Biocomposite Sterile - [id number] Implanted:Qty: 1 on 04/08/2019 by Jameel Smith MD at [facility] Right: Achilles Tendon [employer] [id number] 12/22/2019 [id number] / / Explanted Type Area Pyroglazer Device Identifier Shelf Expiration Date Model / Serial / Lot [employer] [id number] Steinmann 5/64in 9in Trocar Point One End Pin Fixation [facility] - [id number] Explanted:Qty: 1 on 04/08/2019 by Jameel Smith MD at [facility] Right: Achilles Tendon [employer] [id number] S / / Insurance MEDICARE [facility] MEDICARE [facility] MEDICARE [facility] Care Teams Career Technical Education Instructor Relationship Specialty Start Date End Date Idalia Cabello MD PCP - General Family Medicine 04/06/21
[2025-05-13 02:17] VITALS: BP 148/74; PULSE 51; RESP 18; O2SAT 100
[2025-05-13 02:52] VITALS: BP 151/79; PULSE 54; RESP 18; O2SAT 100
== END 2025-05-13 03:04 | disposition home or self-care (01) ==
PROVIDERS: Emergency Provider Student in an Organized Health Care Education/Training Program; PCP Family Medicine
DX: N21.0 Calculus in bladder (principal); R31.0 Gross hematuria; D64.9 Anemia, unspecified; I10 Essential (primary) hypertension; R73.03 Prediabetes
CPT/HCPCS: 36415; 74176; 80053; 81001; 85025; 87086; 99284